=== PATIENT | male | born 1945 | race Caucasian/White ===

== ENCOUNTER 2018-04-26 05:20 | Inpatient (IN) ==
[2018-04-26] MEDS ORDERED: Nitroglycerin Drip Premix 50 MG/250 ML BOTTLE IV.CONT PRN (05:48)
[2018-04-26 05:58] LABS: ABG Base Excess 0.1 mmol/L (-2-2); ABG PCO2 42 mmHg (38-42); ABG PO2 126 mmHg (61-120)
[2018-04-26 06:04] LABS: Baso # (Auto) 0.1 th/mm3 (0.0-0.2); Baso % (Auto) 0.7 % (0.0-2.0); Eos # (Auto) 0.6 th/mm3 (0.0-0.4); Eos % (Auto) 4.3 % (0.0-4.0); Hematocrit 45.2 % (39.0-51.0); Hemoglobin 15.2 gm/dL (13.0-17.0); Lymph # (Auto) 5.9 th/mm3 (1.0-4.8); Lymph % (Auto) 39.3 % (9.0-44.0); Mean Corpuscular HGB Conc 33.7 % (32.0-36.0); Mean Corpuscular Hemoglobin 28.1 pg (27.0-34.0); Mean Corpuscular Volume 83.2 fL (80.0-100.0); Mean Platelet Volume 10.7 fL (7.0-11.0); Mono # (Auto) 1.1 th/mm3 (0.0-0.9); Mono % (Auto) 7.1 % (0.0-8.0); Neut # (Auto) 7.3 th/mm3 (1.8-7.7); Neut % (Auto) 48.6 % (16.0-70.0); Platelet Count 264 th/mm3 (150-450); Red Blood Count 5.43 mil/mm3 (4.50-5.90); Red Cell Distribution Width 14.3 % (11.6-17.2); White Blood Count 15.1 th/mm3 (4.0-11.0)
[2018-04-26 06:16] LABS: Alanine Aminotransferase 29 U/L (12-78); Albumin 3.6 g/dL (3.4-5.0); Anion Gap 8 meq/L (5-15); Aspartate Aminotransferase 21 U/L (15-37); Blood Urea Nitrogen 33 mg/dL (7-18); Calcium 8.9 mg/dL (8.5-10.1); Carbon Dioxide 27.7 meq/L (21.0-32.0); Chloride 105 meq/L (98-107); Glomerular Filtration Rate 27 mL/min (>89); Glucose,Random 168 mg/dL (74-106); Potassium 3.8 meq/L (3.5-5.1); Sodium 141 meq/L (136-145)
[2018-04-26 06:20] LABS: Alkaline Phosphatase 82 U/L (45-117); Total Protein 7.5 g/dL (6.4-8.2); Troponin I 0.06 ng/mL (0.02-0.05)
--- NOTE | 2018-04-26 06:31 | XR ---
EXAM DATE: 04/26/2018 6:26 AM EST AGE/SEX: 72 years / Male INDICATIONS: Shortness of breath. CLINICAL DATA: This is the patient's initial encounter. Patient reports that signs and symptoms have been present for 1 day and indicates a pain score of 0/10. MEDICAL/SURGICAL HISTORY: Carcinoma, prostatic. Hypertension. Tonsillectomy. COMPARISON: [facility], CHEST SINGLE AP, 06/15/2015. . FINDINGS: The heart size is upper limits of normal. There is increased density at the bases. The mid and upper lungs are clear. CONCLUSION: Bibasilar areas of consolidation or atelectasis. Electronically signed by: Sukhdeep De León MD Board Certified Radiologist 04/26/2018 6:29 AM EST
[2018-04-26 07:02] LABS: Eosinophils 3 % (0-4); Monocytes 6 % (0-8)
[2018-04-26 07:03] LABS: Lymphocytes 44 % (9-44); Platelet Estimate Normal (Normal); Platelet Morphology Normal (Normal)
[2018-04-26 07:04] LABS: RBC Morphology Normal (Normal)
--- NOTE | 2018-04-26 07:24 | ED ---
HPI General Chief Complaint: Shortness of Breath/Dyspnea Stated Complaint: resp Time Seen by Provider: 04/26/18 05:48 History of Present Illness pt has history of Bladder CA and was getting IV CT study yesterday , then late in night after study awoke to go to bathroom and felt he could not breath . pt arrives via EMS diaphoretic pulling with subcostal muscles increased RR , denies CHF no COPD history No CP , pt given Nebs en route and is in resp distress on arrival . HPI ROS limited due to resp distress and then rapidly on BiPAP Related Data Home Medications Medication Instructions Recorded Confirmed amlodipine 5 mg PO DAILY 04/26/18 04/26/18 lisinopril 40 mg PO DAILY 04/26/18 04/26/18 Allergies Allergy/AdvReac Type Severity Reaction Status Date / Time ciprofloxacin Allergy Severe Hives Verified 04/26/18 05:31 cephalexin Allergy Intermediate hives Verified 04/26/18 05:31 nitrofurantoin Allergy Intermediate hives Verified 04/26/18 05:31 penicillamine Allergy Hives Verified 04/26/18 05:31 Review of Systems ROS: all other systems reviewed are negative [facility] Medical History Medical History Bladder cancer (Acute) Diverticulitis (Acute) HTN (hypertension) (Acute) Prostate cancer (Acute) Surgical History Surgical History No history of previous surgery (Acute) Social History Social History Substance History: No History of Abuse Second Hand Smoke Exposure: No Smoking Status: Former smoker How Often Do You Have a Drink Containing Alcohol: Never Recent Travel in [facility] within the Last 8 Weeks: No Recent Out of Country Travel within the Last 8 Weeks: No Immunization History Tetanus Immunization: Unsure Exam Narrative Exam Narrative: GENERAL: pt is in resp distress SKIN: Warm and dry. HEAD: Atraumatic. Normocephalic. EYES: Pupils equal and round. No scleral icterus. No injection or drainage. ENT: No nasal bleeding or discharge. Mucous membranes pink and moist. NECK: Trachea midline. No JVD. CARDIOVASCULAR: Regular rate and rhythm. RESPIRATORY: +accessory muscle use. diffuse wheeze of cardiac asthma CHF like diffuse wheeze bilaterally. GASTROINTESTINAL: Abdomen soft, non-tender, nondistended. Hepatic and splenic margins not palpable. MUSCULOSKELETAL: Extremities without clubbing, cyanosis, or edema. No obvious deformities. NEUROLOGICAL: Awake and alert. No obvious cranial nerve deficits. Motor grossly within normal limits. Five out of 5 muscle strength in the arms and legs. Normal speech. PSYCHIATRIC: Appropriate mood and affect; insight and judgment normal. Course Initial Documented Vital Signs Temperature 96.5 F L 04/26/18 05:34 Pulse Rate 115 H 04/26/18 05:34 Respiratory Rate 23 04/26/18 05:34 Blood Pressure 215/123 H 04/26/18 05:34 Pulse Oximetry 98 04/26/18 05:34 Last Documented Vital Signs Temperature 96.5 F L 04/26/18 05:34 Pulse Rate 99 H 04/26/18 06:41 Respiratory Rate 16 04/26/18 06:41 Blood Pressure 139/67 04/26/18 06:41 Pulse Oximetry 98 04/26/18 07:31 Medical Decision Making Lab Data Result diagrams: 04/26/18 05:55 04/26/18 05:55 Lab Results 04/26/18 04/26/18 04/26/18 Range/Units 05:44 05:55 05:55 WBC 15.1 H (4.0-11.0) th/mm3 RBC 5.43 (4.50-5.90) mil/mm3 Hgb 15.2 (13.0-17.0) gm/dL Hct 45.2 (39.0-51.0) % MCV 83.2 (80.0-100.0) fL MCH 28.1 (27.0-34.0) pg MCHC 33.7 (32.0-36.0) % RDW 14.3 (11.6-17.2) % Plt Count 264 (150-450) th/mm3 MPV 10.7 (7.0-11.0) fL Prelim Diff (Auto) Slide review pending Neut % (Auto) 48.6 (16.0-70.0) % Lymph % (Auto) 39.3 (9.0-44.0) % [place] % (Auto) 7.1 (0.0-8.0) % Eos % (Auto) 4.3 H (0.0-4.0) % Baso % (Auto) 0.7 (0.0-2.0) % Neut # (Auto) 7.3 (1.8-7.7) th/mm3 Lymph # (Auto) 5.9 H (1.0-4.8) th/mm3 [place] # (Auto) 1.1 H (0.0-0.9) th/mm3 Eos # (Auto) 0.6 H (0.0-0.4) th/mm3 Baso # (Auto) 0.1 (0.0-0.2) th/mm3 WBC Differential Manual diff final Seg Neuts % (Manual) 47 (16-70) % Lymphocytes % (Manual) 44 (9-44) % Monocytes % (Manual) 6 (0-8) % Eosinophils % (Manual) 3 (0-4) % Abs Neuts (Manual) 7.1 (1.8-7.7) th/mm3 Differential Comment . Platelet Estimate Normal (Normal) Platelet Morphology Normal (Normal) RBC Morphology Normal (Normal) Puncture Site Left radial Patient Temperature 98.6 O2 Saturation 96 (90-100) % ABG pH 7.39 (7.380-7.420) ABG pCO2 42 (38-42) mmHg ABG pO2 126 H (61-120) mmHg ABG HCO3 25 (22-26) mmol/L ABG O2 Content 18.9 (12.0-20.0) Vol % ABG Base Excess 0.1 (-2-2) mmol/L ABG Methemoglobin 0.7 (0-2) % Derrick Test Present Hemoglobin 13.9 (12.0-16.0) G/DL Carboxyhemoglobin 1.7 (0-4) % O2 Delivery Device Nppv Vent Setting Ipap12/epap5 Inspired O2 40 % Critical Value No Sodium 141 (136-145) meq/L Potassium 3.8 (3.5-5.1) meq/L Chloride 105 (98-107) meq/L Carbon Dioxide 27.7 (21.0-32.0) meq/L Anion Gap 8 (5-15) meq/L BUN 33 H (7-18) mg/dL Creatinine 2.39 H (0.60-1.30) mg/dL Estimated GFR 27 L (>89) mL/min Random Glucose 168 H (74-106) mg/dL Calcium 8.9 (8.5-10.1) mg/dL Total Bilirubin 0.6 (0.2-1.0) mg/dL AST 21 (15-37) U/L ALT 29 (12-78) U/L Alkaline Phosphatase 82 (45-117) U/L Troponin I 0.06 H (0.02-0.05) ng/mL B-Natriuretic Peptide (0-100) pg/mL Total Protein 7.5 (6.4-8.2) g/dL Albumin 3.6 (3.4-5.0) g/dL 04/26/18 Range/Units 05:55 WBC (4.0-11.0) th/mm3 RBC (4.50-5.90) mil/mm3 Hgb (13.0-17.0) gm/dL Hct (39.0-51.0) % MCV (80.0-100.0) fL MCH (27.0-34.0) pg MCHC (32.0-36.0) % RDW (11.6-17.2) % Plt Count (150-450) th/mm3 MPV (7.0-11.0) fL Prelim Diff (Auto) Neut % (Auto) (16.0-70.0) % Lymph % (Auto) (9.0-44.0) % [place] % (Auto) (0.0-8.0) % Eos % (Auto) (0.0-4.0) % Baso % (Auto) (0.0-2.0) % Neut # (Auto) (1.8-7.7) th/mm3 Lymph # (Auto) (1.0-4.8) th/mm3 [place] # (Auto) (0.0-0.9) th/mm3 Eos # (Auto) (0.0-0.4) th/mm3 Baso # (Auto) (0.0-0.2) th/mm3 WBC Differential Seg Neuts % (Manual) (16-70) % Lymphocytes % (Manual) (9-44) % Monocytes % (Manual) (0-8) % Eosinophils % (Manual) (0-4) % Abs Neuts (Manual) (1.8-7.7) th/mm3 Differential Comment Platelet Estimate (Normal) Platelet Morphology (Normal) RBC Morphology (Normal) Puncture Site Patient Temperature O2 Saturation (90-100) % ABG pH (7.380-7.420) ABG pCO2 (38-42) mmHg ABG pO2 (61-120) mmHg ABG HCO3 (22-26) mmol/L ABG O2 Content (12.0-20.0) Vol % ABG Base Excess (-2-2) mmol/L ABG Methemoglobin (0-2) % Derrick Test Hemoglobin (12.0-16.0) G/DL Carboxyhemoglobin (0-4) % O2 Delivery Device Vent Setting Inspired O2 % Critical Value Sodium (136-145) meq/L Potassium (3.5-5.1) meq/L Chloride (98-107) meq/L Carbon Dioxide (21.0-32.0) meq/L Anion Gap (5-15) meq/L BUN (7-18) mg/dL Creatinine (0.60-1.30) mg/dL Estimated GFR (>89) mL/min Random Glucose (74-106) mg/dL Calcium (8.5-10.1) mg/dL Total Bilirubin (0.2-1.0) mg/dL AST (15-37) U/L ALT (12-78) U/L Alkaline Phosphatase (45-117) U/L Troponin I (0.02-0.05) ng/mL B-Natriuretic Peptide 701 H (0-100) pg/mL Total Protein (6.4-8.2) g/dL Albumin (3.4-5.0) g/dL Imaging Data Radiologist's impression: Chest X-Ray 04/26/18 05:49 CONCLUSION: Bibasilar areas of consolidation or atelectasis. Discharge Plan Physicians Team ED Provider: Antonio Jeong Primary Care Provider: Chace San Rxs /Orders / Referrals /Forms Prescriptions: No Action amlodipine 5 mg Tablet 5 mg PO DAILY RF: 0 lisinopril 40 mg Tablet 40 mg PO DAILY RF: 0 Status ED Status: Admitted Patient
[2018-04-26] MEDS ORDERED: Bisacodyl 10 MG Supp RECTAL PRN (07:31)
[2018-04-26] MEDS ORDERED: Acetaminophen 325 MG Tablet PO PRN (07:31)
[2018-04-26] MEDS: Heparin - SQ 10,000 UNITS/ML Vial SQ SCH ×2 (08:28→20:34)
[2018-04-26 09:02] LABS: Bacteria,Urine Many /hpf; Bilirubin,Urine Negative (Negative); Color,Urine Yellow (Yellw/Straw); Glucose,Urine (UA) Negative (Negative); Leukocyte Esterase,Urine Moderate (Negative); Mucus,Urine Few /lpf (Occasional); Nitrite,Urine Positive (Negative); Squamous Epithelial Cell,Urine 1 /hpf (0-5)
[2018-04-26 09:03] LABS: Clarity,Urine Hazy (Clear)
[2018-04-26 10:06] LABS: Troponin I 0.17 ng/mL (0.02-0.05)
[2018-04-26 14:50] LABS: Troponin I 0.13 ng/mL (0.02-0.05)
--- NOTE | 2018-04-26 15:41 | ECG ---
Date Performed: 04/26/2018 Time Performed: 05:31:46 PTAGE: 72 years EKG: SINUS TACHYCARDIA WITH FREQUENT VENTRICULAR PREMATURE COMPLEXES INCOMPLETE RIGHT BUNDLE BRA NCH BLOCK NONSPECIFIC T-WAVE ABNORMALITY Compared to previous tracing, tachycardia persists, with mor e significant ST changes and occasional ventricular ectopy. Clinical correlation is recommended ABNOR MAL RHYTHM ECG PREVIOUS TRACING : 06/15/2015 16.40 DOCTOR: Denver Palafox Interpretating Date/Time 04/26/2018 15:40:06
--- NOTE | 2018-04-26 16:05 | P.HPIM ---
History of Present Illness Primary Care Physician: Chace San MD Chief Complaint: dyspnea History of Present Illness: 9-year-old male with a past medical history of bladder cancer, prostate cancer, stage III kidney disease, hypertension who presented to the ER this morning with shortness of breath. He states that he awoke early this morning to urinate and after being up to the bathroom had acute onset of shortness of breath that worsened despite rest. He denies that he had any chest pain, denies syncope. He does admit that through the holidays and over the past week he has been having increased sodium intake, sliding that he has had [place], soy sauce, smoked him, pickles, etc. Yesterday he had an MRI with contrast of his prostate, states that he felt funny afterwards. In the last 2 months he has been to [facility] and had to take multiple breaks due to calf pain that was made worse by extended ambulation. ER workup showed elevated BNP level, urinalysis shows he has a urinary tract infection. Patient denies any symptoms of UTI, denies any recent fevers. He denies any upper respiratory symptoms, no cough, no phlegm changes. He denies any nausea vomiting or diarrhea. Inpatient Certification Inpatient Certification: I certify that the inpatient services were ordered in accordance with Medicare regulations governing the order. This includes certification that hospital inpatient services are reasonable and necessary and in the case of services not specified as inpatient-only under 42 CFR 419.22(n), that they are appropriately provided as inpatient services in accordance to with the 2-midnight benchmark under 43 CFR 412.3(e) Estimated Total Length of Stay (Days): 3 Plans for Post Hospital Care: Home Review of Systems Review of Systems: all other systems reviewed are negative [facility] Medical History Medical History Bladder cancer (Acute) Diverticulitis (Acute) HTN (hypertension) (Acute) Prostate cancer (Acute) Surgical History Surgical History No history of previous surgery (Acute) Family History Family History Other Hypertension Social History Social History Substance History: No History of Abuse Second Hand Smoke Exposure: No Smoking Status: Former smoker How Often Do You Have a Drink Containing Alcohol: Never Recent Travel in [facility] within the Last 8 Weeks: No Recent Out of Country Travel within the Last 8 Weeks: No Immunization History Tetanus Immunization: Unsure Medications and Allergies Allergies Allergy/AdvReac Type Severity Reaction Status Date / Time ciprofloxacin Allergy Severe Hives Verified 04/26/18 05:31 cephalexin Allergy Intermediate hives Verified 04/26/18 05:31 nitrofurantoin Allergy Intermediate hives Verified 04/26/18 05:31 penicillamine Allergy Hives Verified 04/26/18 05:31 Home Medications Medication Instructions Recorded Confirmed Type amlodipine 5 mg PO DAILY 04/26/18 04/26/18 History lisinopril 40 mg PO DAILY 04/26/18 04/26/18 History Active Medications: Active Medications Acetaminophen (Tylenol) 650 mg PO Q4H PRN PRN Reason: Temp > 100.4 Al Hydroxide/Mg Hydroxide (Milk Of Magnesia Liq) 30 ml PO Q12H PRN PRN Reason: Mild Constipation Bisacodyl (Dulcolax Supp) 10 mg RECTAL DAILY PRN PRN Reason: SEVERE CONSITIPATION Heparin Sodium (Porcine) (Heparin Inj) 5,000 units SQ Q12H [facility] Last Admin: 04/26/18 08:28 Dose: 5,000 units Nitroglycerin/Dextrose (Nitroglycerin Drip Premix) 50 mg in 250 mls @ 0 mls/hr IV.CONT TITRATE PRN; Protocol PRN Reason: Per Protocol Lactulose (Lactulose Liq) 30 ml PO DAILY PRN PRN Reason: SEVERE CONSITIPATION Ondansetron HCl (Zofran Inj) 4 mg IV.PUSH Q6H PRN PRN Reason: NAUSEA OR VOMITING Sennosides (Senokot) 17.2 mg PO Q12H PRN PRN Reason: Moderate Constipation Sodium Chloride (Ns Flush) 2 ml IV.FLUSH BID [facility] Last Admin: 04/26/18 09:21 Dose: 2 ml Sodium Chloride (Ns Flush) 2 ml IV.FLUSH PRN PRN PRN Reason: FLUSH AFTER USING IV ACCESS Trimethoprim/Sulfamethoxazole (Bactrim Ds) 1 tab PO Q12HR [facility] Physical Exam Vital signs: Last Vital Signs Temp 97.9 F 04/26/18 15:47 Pulse 95 H 04/26/18 15:47 Resp 18 04/26/18 15:47 BP 154/73 H 04/26/18 15:47 Pulse Ox 95 04/26/18 15:47 Intake & Output 04/24/18 04/25/18 04/26/18 04/27/18 06:59 06:59 06:59 06:59 Weight 90.718 kg Narrative: GENERAL: AAOx3, no acute distress, adequate nutrition SKIN: Warm and dry, no rashes. HEAD: Atraumatic. Normocephalic. EYES: Pupils equal, round, reactive to light. No scleral icterus. No injection or drainage. ENT: No nasal bleeding or discharge. Moist mucous membranes. Nonerythematous oropharynx. NECK: Trachea midline. No JVD. Thyroid size within normal limits. CARDIOVASCULAR: Regular rate and rhythm. No murmur, no gallops, no rubs. RESPIRATORY: Scattered rales bilaterally. Diminished bases with fine crackles bilaterally. No accessory muscle use. GASTROINTESTINAL: Abdomen soft, non-tender, nondistended, normal active bowel sounds. Hepatic and splenic margins not palpable. MUSCULOSKELETAL: Extremities without clubbing or cyanosis. No obvious deformities. Trace edema NEUROLOGICAL: Awake and alert. No obvious cranial nerve deficits. Motor grossly within normal limits. No focal deficits. Five out of 5 muscle strength in the arms and legs. Normal speech. PSYCHIATRIC: Appropriate mood and affect; insight and judgment normal. Results Labs CBC & Chem 7: 04/26/18 05:55 04/26/18 05:55 Imaging Impressions Chest X-Ray 04/26/18 05:49 CONCLUSION: Bibasilar areas of consolidation or atelectasis. Caprini VTE Risk Assessment Caprini VTE Risk Assessment: Moderate/High Risk (score >= 2) Caprini Risk Assessment Model: Point Value = 1 Point Value = 2 Point Value = 3 Point Value = 5 Age 41-60 Minor surgery BMI > 25 kg/m2 Swollen legs Varicose veins or History of unexplained or recurrent spontaneous Oral contraceptives or hormone replacement Sepsis (< 1 month) Serious lung disease, including pneumonia (< 1 month) Abnormal pulmonary function Acute myocardial infarction Congestive heart failure (< 1 month) History of inflammatory bowel disease Medical patient at bed rest Age 61-74 Arthroscopic surgery Major open surgery (> 45 min) Laparoscopic surgery (> 45 min) Malignancy Confined to bed (> 72 hours) Immobilizing plaster cast Central venous access Age >= 75 History of VTE Family history of VTE Factor V Leiden Prothrombin [id number] Lupus anticoagulant Anticardiolipin antibodies Elevated serum homocysteine Heparin-induced thrombocytopenia Other congenital or acquired thrombophilia Stroke (< 1 month) Elective arthroplasty Hip, pelvis, or leg fracture Acute spinal cord injury (< 1 month) Prophylaxis Regimen: Total Risk Factor Score Risk Level Prophylaxis Regimen 0-1 Low Early ambulation 2 Moderate Order ONE of the following: *Sequential Compression Device (SCD) *Heparin 5000 units SQ BID 3-4 Higher Order ONE of the following medications: *Heparin 5000 units SQ TID *Enoxaparin/Lovenox 40 mg SQ daily (WT < 150 kg, CrCl > 30 mL/min) *Enoxaparin/Lovenox 30 mg SQ daily (WT < 150 kg, CrCl > 10-29 mL/min) *Enoxaparin/Lovenox 30 mg SQ BID (WT < 150 kg, CrCl > 30 mL/min) AND/OR *Sequential Compression Device (SCD) 5 or more Highest Order ONE of the following medications: *Heparin 5000 units SQ TID (Preferred with Epidurals) *Enoxaparin/Lovenox 40 mg SQ daily (WT < 150 kg, CrCl > 30 mL/min) *Enoxaparin/Lovenox 30 mg SQ daily (WT < 150 kg, CrCl > 10-29 mL/min) *Enoxaparin/Lovenox 30 mg SQ BID (WT < 150 kg, CrCl > 30 mL/min) AND *Sequential Compression Device (SCD) Assessment and Plan Plan 72-year-old male with history of bladder cancer, prostate cancer who presented to the ER with shortness of breath, elevated troponin, elevated BNP, urinary tract infection. Respiratory distress Secondary to fluid overload, BNP was elevated indicating possible CHF Echocardiogram is pending Patient responded well to initial dose of Lasix, will re-dose now Patient is to remain on CIC in case he needs BiPAP again Currently breathing comfortably Elevated troponins Likely secondary to shortness of breath from fluid overload, possibly from renal impairment Consider, however, that his diet and overall health is a risk for coronary artery disease Cardiology is consulted to assist with further workup Urinary tract infection Patient has a history of prostate cancer and bladder cancer He has had semi-frequent urinary tract infections before He is allergic to Cipro, cephalosporins, penicillin We will begin treatment with Bactrim DS Hypertension Continue home dose of amlodipine and lisinopril DVT Prophylaxis Heparin
--- NOTE | 2018-04-26 16:59 | ECHRPT ---
Indication: Heart Failure CONCLUSIONS The left ventricular systolic function is moderately reduced with an estimated ejection fraction in the range of 40-45%. There is global left ventricular dysfunction. Doppler parameters are consistent with impaired left ventricular relaxtion (grade 1 diastolic dysfun ction). Trace mitral valve regurgitation. There is trace tricuspid valve regurgitation. There is a moderate pericardial effusion present with coagulum. No hemodynamically significant echocardiographic features were observed (no pre-tamponade physiology). BP: / HR: Rhythm: MEASUREMENTS (Male / Female) Normal Values Technical Quality:Fair 2D ECHO LV Diastolic Diameter PLAX 5.1 cm 4.2 - 5.9 / 3.9 - 5.3 cm LV Systolic Diameter PLAX 4.1 cm IVS Diastolic Thickness 0.9 cm 0.6 - 1.0 / 0.6 - 0.9 cm LVPW Diastolic Thickness 1.1 cm 0.6 - 1.0 / 0.6 - 0.9 cm LV Relative Wall Thickness 0.4 RV Internal Dim ED PLAX 2.2 cm LVOT Diameter 2.3 cm Aortic Root Diameter 3.0 cm LA Systolic Diameter LX 2.8 cm 3.0 - 4.0 / 2.7 - 3.8 cm DOPPLER AV Peak Velocity 112.0 cm/s AV Peak Gradient 5.0 mmHg LVOT Peak Velocity 80.0 cm/s LVOT Peak Gradient 2.6 mmHg AV Area Cont Eq pk 3.0 cm Mitral E Point Velocity 74.5 cm/s Mitral A Point Velocity 104.0 cm/s Mitral E to A Ratio 0.7 LV E' Lateral Velocity 7.7 cm/s Mitral E to LV E' Lateral Ratio 9.7 LV E' Septal Velocity 5.7 cm/s Mitral E to LV E' Septal Ratio 13.2 TR Peak Velocity 200.0 cm/s TR Peak Gradient 16.0 mmHg Right Atrial Pressure 10.0 mmHg Pulmonary Artery Systolic Pressu 26.0 mmHg Right Ventricular Systolic Press 26.0 mmHg PV Peak Velocity 80.8 cm/s PV Peak Gradient 2.6 mmHg FINDINGS LEFT VENTRICLE Normal left ventricular size. Wall thickness is normal. The left ventricular systolic function is moderately reduced with an estimated ejection fraction in the range of 40-45%. There is global left ventricular dysfunction. Doppler parameters are consistent with impaired left ventricular relaxtion (grade 1 diastolic dysfun ction). RIGHT VENTRICLE Normal right ventricular size and systolic function. LEFT ATRIUM The left atrial size is normal. RIGHT ATRIUM The right atrial size is normal. ATRIAL SEPTUM Normal atrial septal thickness without atrial level shunting by limited color doppler interrogation. AORTA The aortic root and proximal ascending aorta are normal in size on limited imaging. MITRAL VALVE Structurally normal mitral valve. Trace mitral valve regurgitation. No mitral valve stenosis. AORTIC VALVE Trileaflet aortic valve. No aortic valve stenosis or regurgitation. TRICUSPID VALVE Structurally normal tricuspid valve. There is trace tricuspid valve regurgitation. The estimated pulmonary arterial pressure is 26 mmHg. PULMONARY VALVE The pulmonary valve is not well visualized. VESSELS The inferior vena cava is dilated. PERICARDIUM There is a moderate pericardial effusion present with coagulum. No hemodynamically significant echocardiographic features were observed (no pre-tamponade physiology). David Fair DO (Electronically Signed) Final Date:26 April 2018 16:58
--- NOTE | 2018-04-26 22:56 | MB ---
cc: David Fair DO DATE: 04/26/2018 REASON FOR CONSULTATION: Shortness of breath, elevated troponin. HISTORY OF PRESENT ILLNESS: Elías Aldridge is a pleasant 72-year-old male who presented to [facility] Emergency Room due to shortness of breath. He states that he had an MRI with contrast for his prostate and afterwards felt funny, including a warm feeling and somewhat dizzy. He then went home and went to bed. He got up in the middle of the night like he normally does to use the restroom. After walking back from the restroom, he sat down in his recliner and noticed he was significantly short of breath. He continued having trouble breathing. Denying any chest pain or palpitations and so as his breathing was not getting better, he called his and she brought him to the emergency room. The patient admits that over the past 2-3 weeks his diet has been horrible, eating smoked ham every day, along with [place] food with extra soy sauce. Since here, he has been given a dose of diuretic and feels better. PAST MEDICAL HISTORY: 1. Bladder cancer. 2. Diverticulitis. 3. Hypertension. 4. Prostate cancer. PAST SURGICAL HISTORY: Tonsillectomy. ALLERGIES: 1. CIPROFLOXACIN. 2. CEFOXITIN. 3. NITROFURANTOIN. 4. PENICILLAMINE. MEDICATIONS: 1. Norvasc 5 mg daily. 2. Lisinopril 40 mg daily. FAMILY HISTORY: Denies sudden cardiac within the family. SOCIAL HISTORY: The patient is a former smoker. Denies alcohol or drug abuse. REVIEW OF SYSTEMS: Fourteen systems were reviewed, including osteopathic. Pertinent positives and negatives above, otherwise negative. PHYSICAL EXAMINATION: VITAL SIGNS: Temperature 97.9, heart rate 95, blood pressure 154/73, respirations 18, pulse oximetry 95% on room air. GENERAL: The patient appears well, in no acute distress, alert, awake and oriented x 3. HEENT: Extraocular muscles intact. Mucous membranes moist. NECK: Supple. No JVD at 45 degrees. No carotid bruits heard bilaterally. Carotid upstroke is brisk in nature. HEART: Regular rate and rhythm. Positive first and second heart sounds with no noted murmurs, gallops or rubs. LUNGS: Scattered rales bilaterally with diminished breath sounds at the bases. No accessory muscle use noted. ABDOMEN: Soft, nontender, nondistended. No organomegaly noted. EXTREMITIES: Show no clubbing, cyanosis or edema. Femoral and distal pulses are intact bilaterally. NEUROLOGIC: No focal deficits. SKIN: Warm, dry and intact. OSTEOPATHIC: Mild lordosis. No kyphoscoliosis or paraspinal tender points. LABORATORY DATA: Hemoglobin 15.2, hematocrit 45.2, platelets 264. Potassium 3.8, BUN 33, creatinine 2.39. Troponin 0.17. Electrocardiogram (04/26/2018 at 1408): Sinus rhythm, incomplete right bundle branch block, nonspecific ST-T wave changes. IMPRESSION: 1. Acute heart failure secondary to salt indiscretion. 2. Hypertensive urgency with a blood pressure of 215/123 on arrival. 3. History of bladder cancer and prostate cancer. 4. Minimally elevated troponin secondary to fluid overload state, renal impairment and hypertensive urgency. RECOMMENDATIONS: 1. Mr. Aldridge presented with significant shortness of breath, most likely due to a fluid overload state due to his dietary indiscretion with salt recently. 2. He was also found to be exceptionally hypertensive, most likely due to his salt indiscretion. Since that time, his blood pressure has been somewhat better. We will continue him on his Norvasc. 3. His creatinine is elevated from the last lab work we have, but this is 3 years ago. We will continue to follow this and if worsening, will need to stop his lisinopril. 4. We will continue to diurese him as possible. 5. Elevated troponin is most likely secondary to his acute congestive heart failure as well as his hypertensive urgency. 6. Echocardiogram is being done at the bedside, intravenous. His ejection fraction appears to be 40% to 45% and he has a moderate pericardial effusion with what appears to be coagulum, and no hemodynamic compromise of tamponade. 7. We will continue to diurese him and need to repeat the echo probably in 48 hours. 8. We should obtain the MRI from [facility] for complete picture. 9. We will work him up for other causes of pericardial effusion. 10. Due to his overall history, I believe he should undergo a stress test at some point, and we will consider inpatient versus outpatient stress testing, depending on his hospital course. 11. Further recommendations will be made based on the hospital course. Thank you for allowing me to see Elías Aldridge. If there are any questions, please do not hesitate to call. DO DANIS Burdick/severo , 10:00 PM , 10:13 PM
[2018-04-27 05:55] LABS: Hematocrit 38.1 % (39.0-51.0); Hemoglobin 12.5 gm/dL (13.0-17.0); Mean Corpuscular HGB Conc 32.7 % (32.0-36.0); Mean Corpuscular Hemoglobin 27.3 pg (27.0-34.0); Mean Corpuscular Volume 83.5 fL (80.0-100.0); Mean Platelet Volume 10.7 fL (7.0-11.0); Platelet Count 184 th/mm3 (150-450); Red Blood Count 4.56 mil/mm3 (4.50-5.90); Red Cell Distribution Width 13.9 % (11.6-17.2); White Blood Count 10.5 th/mm3 (4.0-11.0)
[2018-04-27 06:23] LABS: Calcium 8.7 mg/dL (8.5-10.1); Potassium 3.5 meq/L (3.5-5.1)
[2018-04-27 06:33] LABS: Thyroid Stimulating Hormone 0.87 uIU/mL (0.358-3.740)
[2018-04-27] MEDS: Lisinopril 20 MG Tablet PO SCH (08:53)
[2018-04-27] MEDS: Heparin - SQ 10,000 UNITS/ML Vial SQ SCH ×2 (08:54→20:01)
[2018-04-27] MEDS ORDERED: amLODIPine 5 MG Tablet PO SCH (09:00)
--- NOTE | 2018-04-27 10:09 | ECG ---
Date Performed: 04/26/2018 Time Performed: 14:08:02 PTAGE: 72 years EKG: Sinus rhythm Incomplete RBBB Possible right ventricular hypertrophy Anterolateral T wave changes may be due to my ocardial ischemia Abnormal ECG PREVIOUS TRACING : 04/26/2018 05.31 DOCTOR: Nikolay Posada Interpretating Date/Time 04/27/2018 10:08:12
[2018-04-27] MEDS ORDERED: Tuberculin PPD 5 UNITS/0.1 ML Syringe I-DERMAL ONE (15:00)
[2018-04-27] MEDS ORDERED: amLODIPine 5 MG Tablet PO ONE (15:05)
--- NOTE | 2018-04-27 15:11 | P.PNCA ---
Subjective Interval history: No events overnight Feels better, SOB decreased Continues to diurese Medications and Allergies Active Medications: Active Medications Acetaminophen (Tylenol) 650 mg PO Q4H PRN PRN Reason: Temp > 100.4 Last Admin: 04/26/18 20:36 Dose: 650 mg Al Hydroxide/Mg Hydroxide (Milk Of Magnesia Liq) 30 ml PO Q12H PRN PRN Reason: Mild Constipation Amlodipine Besylate (Norvasc) 5 mg PO DAILY [facility] Last Admin: 04/27/18 08:53 Dose: 5 mg Aspirin (Aspirin Chew) 81 mg PO DAILY [facility] Last Admin: 04/27/18 08:53 Dose: 81 mg Bisacodyl (Dulcolax Supp) 10 mg RECTAL DAILY PRN PRN Reason: SEVERE CONSITIPATION Doxycycline Hyclate (Vibramycin) 100 mg PO Q12HR [facility] Last Admin: 04/27/18 08:53 Dose: 100 mg Heparin Sodium (Porcine) (Heparin Inj) 5,000 units SQ Q12H [facility] Last Admin: 04/27/18 08:54 Dose: 5,000 units Nitroglycerin/Dextrose (Nitroglycerin Drip Premix) 50 mg in 250 mls @ 0 mls/hr IV.CONT TITRATE PRN; Protocol PRN Reason: Per Protocol Lactulose (Lactulose Liq) 30 ml PO DAILY PRN PRN Reason: SEVERE CONSITIPATION Lisinopril (Prinivil) 40 mg PO DAILY [facility] Last Admin: 04/27/18 08:53 Dose: 40 mg Ondansetron HCl (Zofran Inj) 4 mg IV.PUSH Q6H PRN PRN Reason: NAUSEA OR VOMITING Sennosides (Senokot) 17.2 mg PO Q12H PRN PRN Reason: Moderate Constipation Skin Test Antigens (Skin Test Result) 1 each OTHER Q24H [facility] Stop: 04/30/18 14:59 Sodium Chloride (Ns Flush) 2 ml IV.FLUSH BID [facility] Last Admin: 04/27/18 08:54 Dose: 2 ml Sodium Chloride (Ns Flush) 2 ml IV.FLUSH PRN PRN PRN Reason: FLUSH AFTER USING IV ACCESS Allergies Allergy/AdvReac Type Severity Reaction Status Date / Time ciprofloxacin Allergy Severe Hives Verified 04/26/18 05:31 cephalexin Allergy Intermediate hives Verified 04/26/18 05:31 nitrofurantoin Allergy Intermediate hives Verified 04/26/18 05:31 penicillamine Allergy Hives Verified 04/26/18 05:31 Home Medications Medication Instructions Recorded Confirmed Type amlodipine 5 mg PO DAILY 04/26/18 04/26/18 History lisinopril 40 mg PO DAILY 04/26/18 04/26/18 History Physical Exam Vital signs: Vital Signs 04/26/18 15:45 04/26/18 15:47 04/26/18 17:00 Temperature 97.9 F Pulse Rate 85 95 H 82 Respiratory Rate 18 Blood Pressure 154/73 H Pulse Oximetry 95 04/26/18 18:00 04/26/18 19:00 04/26/18 20:00 Temperature 98.7 F Pulse Rate 83 92 H 103 H Respiratory Rate 17 Blood Pressure 168/84 H Pulse Oximetry 95 04/26/18 21:00 04/26/18 22:00 04/26/18 22:35 Temperature Pulse Rate 92 H 95 H Respiratory Rate 17 Blood Pressure Pulse Oximetry 04/26/18 23:00 04/27/18 00:00 04/27/18 01:00 Temperature 98.3 F Pulse Rate 95 H 110 H 92 H Respiratory Rate 17 Blood Pressure 158/83 H Pulse Oximetry 95 04/27/18 02:00 04/27/18 03:00 04/27/18 04:00 Temperature 97.9 F Pulse Rate 87 92 H 101 H Respiratory Rate 18 Blood Pressure 169/94 H Pulse Oximetry 97 04/27/18 05:00 04/27/18 05:19 04/27/18 07:00 Temperature Pulse Rate 101 H 86 84 Respiratory Rate Blood Pressure Pulse Oximetry 04/27/18 08:00 04/27/18 08:20 04/27/18 09:00 Temperature 97.3 F L Pulse Rate 102 H 92 H 98 H Respiratory Rate 20 Blood Pressure 155/87 H Pulse Oximetry 95 95 04/27/18 10:00 04/27/18 12:00 Temperature 98.6 F Pulse Rate 104 H 92 H Respiratory Rate 20 Blood Pressure 156/74 H Pulse Oximetry 95 Intake & Output 04/26/18 04/27/18 04/27/18 18:59 06:59 18:59 Intake Total 840 / 840 1440 / 1440 Output Total 800 / 800 1000 / 1000 Balance 40 / 40 440 / 440 Intake: Oral 840 / 840 1440 / 1440 Output: Urine 800 / 800 1000 / 1000 Other: Date of Last Bowel Movement 04/26/18 Narrative: GENERAL: AAOx3, no acute distress, adequate nutrition SKIN: Warm and dry, no rashes. HEAD: Atraumatic. Normocephalic. EYES: Pupils equal, round, reactive to light. No scleral icterus. No injection or drainage. ENT: No nasal bleeding or discharge. Moist mucous membranes. Nonerythematous oropharynx. NECK: Trachea midline. No JVD. Thyroid size within normal limits. CARDIOVASCULAR: Regular rate and rhythm. No murmur, no gallops, no rubs. RESPIRATORY: Scattered rales bilaterally. Diminished bases with fine crackles bilaterally. No accessory muscle use. GASTROINTESTINAL: Abdomen soft, non-tender, nondistended, normal active bowel sounds. Hepatic and splenic margins not palpable. MUSCULOSKELETAL: Extremities without clubbing or cyanosis. No obvious deformities. Trace edema NEUROLOGICAL: Awake and alert. No obvious cranial nerve deficits. Motor grossly within normal limits. No focal deficits. Five out of 5 muscle strength in the arms and legs. Normal speech. PSYCHIATRIC: Appropriate mood and affect; insight and judgment normal. Results 04/27/18 04:41 04/27/18 04:41 Cardiac Enzymes 04/26/18 04/26/18 04/26/18 Range/Units 05:55 05:55 09:08 AST 21 (15-37) U/L Troponin I 0.06 H 0.17 H (0.02-0.05) ng/mL B-Natriuretic Peptide 701 H (0-100) pg/mL 04/26/18 04/27/18 Range/Units 14:15 04:41 AST (15-37) U/L Troponin I 0.13 H (0.02-0.05) ng/mL B-Natriuretic Peptide 433 H (0-100) pg/mL Coagulation 04/26/18 04/27/18 Range/Units 05:55 04:41 B-Natriuretic Peptide 701 H 433 H (0-100) pg/mL CBC 04/26/18 04/27/18 Range/Units 05:55 04:41 WBC 15.1 H 10.5 (4.0-11.0) th/mm3 RBC 5.43 4.56 (4.50-5.90) mil/mm3 Hgb 15.2 12.5 L D (13.0-17.0) gm/dL Hct 45.2 38.1 L (39.0-51.0) % Plt Count 264 184 D (150-450) th/mm3 Neut # (Auto) 7.3 (1.8-7.7) th/mm3 Lymph # (Auto) 5.9 H (1.0-4.8) th/mm3 [place] # (Auto) 1.1 H (0.0-0.9) th/mm3 Eos # (Auto) 0.6 H (0.0-0.4) th/mm3 Baso # (Auto) 0.1 (0.0-0.2) th/mm3 Comprehensive Metabolic Panel 04/26/18 04/27/18 Range/Units 05:55 04:41 Sodium 141 141 (136-145) meq/L Potassium 3.8 3.5 (3.5-5.1) meq/L Chloride 105 106 (98-107) meq/L Carbon Dioxide 27.7 27.0 (21.0-32.0) meq/L BUN 33 H 36 H (7-18) mg/dL Creatinine 2.39 H 2.13 H (0.60-1.30) mg/dL Calcium 8.9 8.7 (8.5-10.1) mg/dL AST 21 (15-37) U/L ALT 29 (12-78) U/L Alkaline Phosphatase 82 (45-117) U/L Total Protein 7.5 (6.4-8.2) g/dL Albumin 3.6 (3.4-5.0) g/dL Intake and Output 04/27/18 04/27/18 04/27/18 06:59 14:59 22:59 Intake Total 1440 / 1440 Output Total 1000 / 1000 Balance 440 / 440 Intake: Oral 1440 / 1440 Output: Urine 1000 / 1000 - Imaging and Cardiology Imaging: Impressions Chest X-Ray 04/26/18 05:49 CONCLUSION: Bibasilar areas of consolidation or atelectasis. Assessment and Plan - Assessment (1) Acute CHF (congestive heart failure) Code(s): I50.9 - Heart failure, unspecified Status: Acute (2) Elevated troponin Code(s): R74.8 - Abnormal levels of other serum enzymes Status: Acute - Plan 1. Acute heart failure secondary to salt indiscretion. Con't diuresis Decrease salt intake 2. Hypertensive urgency with a blood pressure of 215/123 on arrival. Blood pressure control Will increase Norvasc to 10mg daily 3. History of bladder cancer and prostate cancer. 4. Minimally elevated troponin secondary to fluid overload state, renal impairment and hypertensive urgency. No sign of ACS Consider stress testing, most likely outpatient 5. Pericardial effusion with coagulum Mantoux (PPD) test placed Obtain imaging from [facility] With bladder and prostate cancer, the chances of the effusion being malignant would be very small (usually lung, breast CA) Repeat echo tomorrow to evaluate
--- NOTE | 2018-04-27 16:09 | P.PNIM ---
Subjective Interval history: This morning patient reported that he is feeling much better and would like to go home. He was evaluated by cardiology who wishes to repeat an echocardiogram tomorrow morning. He has been diuresed during his stay in the overall cause of his admission seems to be fluid overload secondary to increased salt intake. Physical Exam Vital signs: Last Vital Signs Temp 98.4 F 04/27/18 15:23 Pulse 92 H 04/27/18 15:55 Resp 18 04/27/18 15:23 BP 146/78 H 04/27/18 15:23 Pulse Ox 95 04/27/18 15:23 Intake & Output 04/25/18 04/26/18 04/27/18 04/28/18 06:59 06:59 06:59 06:59 Intake Total 2280 / 2280 Output Total 1800 / 1800 Balance 480 / 480 Weight 90.718 kg Narrative: GENERAL: AAOx3, no acute distress, adequate nutrition SKIN: Warm and dry, no rashes. HEAD: Atraumatic. Normocephalic. EYES: Pupils equal, round, reactive to light. No scleral icterus. No injection or drainage. ENT: No nasal bleeding or discharge. Moist mucous membranes. Nonerythematous oropharynx. NECK: Trachea midline. No JVD. Thyroid size within normal limits. CARDIOVASCULAR: Regular rate and rhythm. No murmur, no gallops, no rubs. RESPIRATORY: Scattered rales bilaterally. Diminished bases with fine crackles bilaterally. No accessory muscle use. GASTROINTESTINAL: Abdomen soft, non-tender, nondistended, normal active bowel sounds. Hepatic and splenic margins not palpable. MUSCULOSKELETAL: Extremities without clubbing or cyanosis. No obvious deformities. Trace edema NEUROLOGICAL: Awake and alert. No obvious cranial nerve deficits. Motor grossly within normal limits. No focal deficits. Five out of 5 muscle strength in the arms and legs. Normal speech. PSYCHIATRIC: Appropriate mood and affect; insight and judgment normal. Results Labs CBC & Chem 7: 04/27/18 04:41 04/27/18 04:41 Labs: Microbiology 04/26/18 08:20 Clean Catch Urine Urine Culture - Preliminary gram negative rods Assessment and Plan (1) Acute CHF (congestive heart failure): Code(s): I50.9 - Heart failure, unspecified Status: Acute (2) Elevated troponin: Code(s): R74.8 - Abnormal levels of other serum enzymes Status: Acute Plan 72-year-old male with history of bladder cancer, prostate cancer who presented to the ER with shortness of breath, elevated troponin, elevated BNP, urinary tract infection. Respiratory distress Secondary to fluid overload, BNP was elevated indicating possible CHF Initial echocardiogram shows ejection fraction of 40-45%, repeat 2D echocardiogram is ordered for tomorrow morning Continue Lasix for diuresis Breathing is stable, at baseline Elevated troponins Likely secondary to shortness of breath from fluid overload, possibly from renal impairment, excess salt intake Consider, however, that his diet and overall health is a risk for coronary artery disease Plan for stress testing, likely as outpatient Appreciate cardiology consult Urinary tract infection Patient has a history of prostate cancer and bladder cancer He has had semi-frequent urinary tract infections before He is allergic to Cipro, cephalosporins, penicillin We will begin treatment with Bactrim DS Continue Bactrim DS for 5-7 days following discharge Hypertension Continue home dose of amlodipine and lisinopril DVT Prophylaxis Heparin Discharge planning If echocardiogram is improved and cleared by cardiology patient may likely go home tomorrow _ (1) Acute CHF (congestive heart failure) Qualifiers: Heart failure type:
[2018-04-28] MEDS: Heparin - SQ 10,000 UNITS/ML Vial SQ SCH ×2 (09:23→21:29)
[2018-04-28] MEDS: Lisinopril 20 MG Tablet PO SCH (09:23)
[2018-04-28] MEDS: amLODIPine 10 MG Tablet PO SCH (09:24)
--- NOTE | 2018-04-28 10:18 | ECHRPT ---
Indication: ?EF, ?PE CONCLUSIONS Normal left ventricular size. Wall thickness is normal. The left ventricular systolic function is severely reduced with an estimated ejection fraction less than 20%. No tricuspid regurgitation. There is a small to moderate anterior pericardial effusion present. There is some comprimise of the right atrium with diastolic collapse. No significant right ventricular collapse. The possibility of hemodynamic compromise cannot be excluded on the basis of the available images. Clinical correlation is recommended.. BP: / HR: Rhythm: Sinus MEASUREMENTS (Male / Female) Normal Values Technical Quality:Fair 2D ECHO LV Diastolic Diameter PLAX 5.5 cm 4.2 - 5.9 / 3.9 - 5.3 cm LV Systolic Diameter PLAX 5.1 cm IVS Diastolic Thickness 0.9 cm 0.6 - 1.0 / 0.6 - 0.9 cm LVPW Diastolic Thickness 0.9 cm 0.6 - 1.0 / 0.6 - 0.9 cm LV Relative Wall Thickness 0.3 RV Internal Dim ED PLAX 1.8 cm LA Systolic Diameter LX 2.8 cm 3.0 - 4.0 / 2.7 - 3.8 cm M-MODE AV Cusp Separation MM 1.8 cm DOPPLER AV Peak Velocity 101.0 cm/s AV Peak Gradient 4.1 mmHg AV Mean Gradient 2.0 mmHg AV Velocity Time Integral 16.6 cm LVOT Peak Velocity 74.4 cm/s LVOT Peak Gradient 2.2 mmHg LVOT Velocity Time Integral 11.5 cm Mitral E Point Velocity 69.6 cm/s Mitral A Point Velocity 97.7 cm/s Mitral E to A Ratio 0.7 LV E' Lateral Velocity 6.6 cm/s Mitral E to LV E' Lateral Ratio 10.5 LV E' Septal Velocity 3.8 cm/s Mitral E to LV E' Septal Ratio 18.3 FINDINGS LEFT VENTRICLE Normal left ventricular size. Wall thickness is normal. The left ventricular systolic function is severely reduced with an estimated ejection fraction less than 20%. RIGHT VENTRICLE Normal right ventricular size and systolic function. LEFT ATRIUM The left atrial size is normal. RIGHT ATRIUM The right atrial size is normal. ATRIAL SEPTUM The interatrial septum not well visualized. AORTA The aortic root and proximal ascending aorta are normal in size on limited imaging. MITRAL VALVE Structurally normal mitral valve. No mitral valve stenosis or regurgitation. AORTIC VALVE Trileaflet aortic valve. No aortic valve stenosis or regurgitation. TRICUSPID VALVE No tricuspid regurgitation. PULMONARY VALVE The pulmonary valve is not well visualized. VESSELS The inferior vena cava is normal in size. PERICARDIUM There is a small to moderate anterior pericardial effusion present. There is some comprimise of the right atrium with diastolic collapse. No significant right ventricular collapse. The possibility of hemodynamic compromise cannot be excluded on the basis of the available images. Clinical correlation is recommended.. Nikolay Posada MD, FACC (Electronically Signed) Final Date:28 April 2018 10:17
[2018-04-28 11:37] LABS: Hemoglobin 13.6 gm/dL (13.0-17.0); Mean Corpuscular HGB Conc 33.9 % (32.0-36.0); Mean Corpuscular Hemoglobin 27.9 pg (27.0-34.0); Mean Corpuscular Volume 82.4 fL (80.0-100.0); Mean Platelet Volume 10.7 fL (7.0-11.0); Platelet Count 218 th/mm3 (150-450); Red Blood Count 4.86 mil/mm3 (4.50-5.90); Red Cell Distribution Width 14.5 % (11.6-17.2); White Blood Count 9.8 th/mm3 (4.0-11.0)
[2018-04-28 12:01] LABS: Calcium 8.9 mg/dL (8.5-10.1); Carbon Dioxide 28.6 meq/L (21.0-32.0); Potassium 3.6 meq/L (3.5-5.1)
--- NOTE | 2018-04-28 13:22 | P.PNIM ---
Subjective Interval history: patient laying down in bed. No current complaints. Physical Exam Vital signs: Vital Signs 04/27/18 14:00 04/27/18 15:00 04/27/18 15:23 Temperature 98.4 F Pulse Rate 88 92 H 88 Respiratory Rate 18 Blood Pressure 146/78 H Pulse Oximetry 95 04/27/18 15:55 04/27/18 17:00 04/27/18 17:51 Temperature Pulse Rate 92 H 110 H 97 H Respiratory Rate Blood Pressure Pulse Oximetry 04/27/18 19:00 04/27/18 20:00 04/27/18 21:00 Temperature 97.8 F Pulse Rate 95 H 92 H 98 H Respiratory Rate 16 Blood Pressure 156/94 H Pulse Oximetry 96 04/27/18 22:00 04/27/18 23:00 04/28/18 00:00 Temperature 98.6 F Pulse Rate 94 H 90 102 H Respiratory Rate 16 Blood Pressure 163/82 H Pulse Oximetry 96 04/28/18 01:00 04/28/18 02:00 04/28/18 03:00 Temperature Pulse Rate 90 98 H 119 H Respiratory Rate Blood Pressure Pulse Oximetry 04/28/18 04:00 04/28/18 05:00 04/28/18 07:00 Temperature 98.1 F Pulse Rate 94 H 92 H 85 Respiratory Rate 16 Blood Pressure 148/69 H Pulse Oximetry 94 L 04/28/18 08:00 04/28/18 09:00 04/28/18 09:35 Temperature 98.2 F Pulse Rate 104 H 96 H Respiratory Rate Blood Pressure 147/86 H Pulse Oximetry 96 95 04/28/18 10:00 04/28/18 11:00 04/28/18 12:00 Temperature 98.0 F Pulse Rate 94 H 85 96 H Respiratory Rate 16 Blood Pressure 134/80 Pulse Oximetry 96 04/28/18 13:00 Temperature Pulse Rate 112 H Respiratory Rate Blood Pressure Pulse Oximetry Intake & Output 04/27/18 04/28/18 04/28/18 18:59 06:59 18:59 Intake Total 1440 / 1440 720 / 720 Output Total 2600 / 2600 2300 / 2300 Balance -1160 / -1160 -1580 / -1580 Weight 88.3 kg Intake: Oral 1440 / 1440 720 / 720 Output: Urine 2600 / 2600 2300 / 2300 Other: Date of Last Bowel Movement 04/27/18 04/27/18 Narrative: alert and oriented S1S2 cta b/l B/l lower ext edema resolved. No edema on my examination No neuro deficits. Results - Labs CBC & Chem 7: 04/28/18 11:16 04/28/18 11:16 Laboratory Results - last 24 hr 04/28/18 04/28/18 11:16 11:16 WBC 9.8 RBC 4.86 Hgb 13.6 Hct 40.0 MCV 82.4 MCH 27.9 MCHC 33.9 RDW 14.5 Plt Count 218 MPV 10.7 Sodium 139 Potassium 3.6 Chloride 103 Carbon Dioxide 28.6 Anion Gap 7 BUN 32 H Creatinine 2.15 H Estimated GFR 31 L Random Glucose 103 Calcium 8.9 Microbiology 04/26/18 08:20 Clean Catch Urine Urine Culture - Final Escherichia coli Assessment and Plan - Assessment (1) Acute CHF (congestive heart failure) Code(s): I50.9 - Heart failure, unspecified Status: Acute (2) Elevated troponin Code(s): R74.8 - Abnormal levels of other serum enzymes Status: Acute - Plan This patient is a 72 y/o M with a dx of bladder cancer, prostate cancer, Stage III CKD, HTN. Patient presented to the ED with complaints of Shortness of breath. Patient was subsequently admitted for a CHF exacerbation and was started on IV lasix for diuresis. 1. Acute Systolic CHF exacerbation. Patient is now on room air and has been diuresed well. 2 D echo now shows EF less than 20%, small pericardial effusion. PPD ordered by cardiology. Continue Aspirin, Coreg started, continue lisinopril. Will follow up with Cardiology for their recommendations regarding the patients severe Systolic heart failure. Once cleared by cardiology will plan his discharge. 2. Elevated troponins likely 2/2 #1 Elevated troponins from systolic chf exac most likely Cardiology following continue asa, bb 3. UTI E coli, sensitive to Bactrim. Continue po bactrim. 4. HTN Continue lisinopril, BB. will continue to monitor and adjust his meds as needed. 5. CKD stage III Cr at baseline. avoid nephrotoxic agents. Heparin for dvt prophylaxis.
[2018-04-28 15:06] LABS: Activated Partial Thrombo Time 32.2 sec (23.4-31.7); INR 1.3 Ratio; Prothrombin Time 12.9 sec (9.8-11.6)
--- NOTE | 2018-04-28 15:53 | P.RAD ---
Post CT Procedure Prog Note - Procedure Information Procedure Date: 04/28/18 Supervising Radiologist: Jose R Abbott MD Estimated blood loss (mL): 0 Anesthesia: Local - Plan of Activity Patient to Unit: Nursing Unit Patient condition: Good See PACS Report for procedural detail/treatment.
--- NOTE | 2018-04-28 16:18 | CT ---
EXAM DATE: 04/28/2018 4:14 PM EST AGE/SEX: 72 years / Male INDICATIONS: Pericardial effusion. CLINICAL DATA: This is the patient's initial encounter. Patient reports that signs and symptoms have been present for 1 day and indicates a pain score of 0/10. MEDICAL/SURGICAL HISTORY: Carcinoma, bladder. Hypertension. Renal disease. None. COMPARISON: No prior exams available for comparison. BIOPSY SITE: pericardial effusion MEDICATION(S): 2mg lorazepam (Ativan) IV DEVICE(S): 6 Fr Skater FLUID: Total volume of 170 of clear, yellow fluid was removed. Fluid was sent to lab for ordered studies.. . . PROCEDURE : CT guided drainage of pericardial effusion. The risks, benefits and alternatives to the procedure were explained and verbal and written consent w as obtained. Using automated exposure control and adjustment of the mA and/or kV according to patient size, radiation dose was kept as low as reasonably achievable to obtain optimal diagnostic quality i mages. The site was prepped in sterile fashion. Full sterile technique was used, including cap, ma sk, sterile gloves and gown and a large sterile sheet. Hand hygiene and 2% chlorhexidine and/or beta dine/alcohol prep was utilized per protocol for cutaneous antisepsis. The skin and subcutaneous tiss ues were infiltrated with local anesthetic solution. DICOM format image data is available electronic ally for review and comparison. Using CT guidance the prescribed site was localized. Drainage was performed using the prescribed cat heter. The patient tolerated the procedure well and there were no complications. The patient tolerated the procedure well and there were no complications. The patient was sent to post anesthesia recovery in s table condition. FINDINGS: There is a small pericardial effusion. No significant residual effusion following catheter placement. CONCLUSION: 1. Uncomplicated CT guided pericardial drainage catheter placement, as above. Electronically signed by: Jose R Abbott MD Board Certified Radiologist 04/28/2018 4:17 PM EST
[2018-04-28 17:57] LABS: Mesothelials Pericardial Fluid 22 %
[2018-04-28] MEDS ORDERED: Morphine Inj 4 MG/ML Vial IV.PUSH ONE (21:18)
[2018-04-28] MEDS ORDERED: Acetaminophen 325 MG Tablet PO PRN (21:18)
--- NOTE | 2018-04-28 23:26 | P.PNCA ---
Subjective Interval history: Feels well overall Repeat echo with concern for EF of 20%, questionable pre-tamponade on echo Medications and Allergies Active Medications: Active Medications Acetaminophen (Tylenol) 650 mg PO Q4H PRN PRN Reason: Temp > 100.4 Last Admin: 04/26/18 20:36 Dose: 650 mg Acetaminophen (Tylenol) 650 mg PO Q4H PRN PRN Reason: fever or mild pain Hydrocodone Bitart/Acetaminophen ([place] 10/325) 1 tab PO Q4H PRN PRN Reason: PAIN SCALE 6 TO 10 Hydrocodone Bitart/Acetaminophen ([place] 5/325) 1 tab PO Q4H PRN PRN Reason: PAIN SCALE 1 TO 5 Al Hydroxide/Mg Hydroxide (Milk Of Magnesia Liq) 30 ml PO Q12H PRN PRN Reason: Mild Constipation Amlodipine Besylate (Norvasc) 10 mg PO DAILY [facility] Last Admin: 04/28/18 09:24 Dose: 10 mg Aspirin (Aspirin Chew) 81 mg PO DAILY [facility] Last Admin: 04/28/18 09:24 Dose: 81 mg Bisacodyl (Dulcolax Supp) 10 mg RECTAL DAILY PRN PRN Reason: SEVERE CONSITIPATION Carvedilol (Coreg) 3.125 mg PO BID [facility] Last Admin: 04/28/18 21:30 Dose: 3.125 mg Heparin Sodium (Porcine) (Heparin Inj) 5,000 units SQ Q12H [facility] Last Admin: 04/28/18 21:29 Dose: 5,000 units Nitroglycerin/Dextrose (Nitroglycerin Drip Premix) 50 mg in 250 mls @ 0 mls/hr IV.CONT TITRATE PRN; Protocol PRN Reason: Per Protocol Lactulose (Lactulose Liq) 30 ml PO DAILY PRN PRN Reason: SEVERE CONSITIPATION Lisinopril (Prinivil) 40 mg PO DAILY [facility] Last Admin: 04/28/18 09:23 Dose: 40 mg Ondansetron HCl (Zofran Inj) 4 mg IV.PUSH Q6H PRN PRN Reason: NAUSEA OR VOMITING Last Admin: 04/28/18 21:06 Dose: 4 mg Sennosides (Senokot) 17.2 mg PO Q12H PRN PRN Reason: Moderate Constipation Skin Test Antigens (Skin Test Result) 1 each OTHER Q24H [facility] Stop: 04/30/18 14:59 Last Admin: 04/28/18 17:19 Dose: 1 each Sodium Chloride (Ns Flush) 2 ml IV.FLUSH BID [facility] Last Admin: 04/28/18 21:31 Dose: 2 ml Sodium Chloride (Ns Flush) 2 ml IV.FLUSH PRN PRN PRN Reason: FLUSH AFTER USING IV ACCESS Trimethoprim/Sulfamethoxazole (Bactrim Ds) 1 tab PO Q12HR [facility] Last Admin: 04/28/18 21:31 Dose: Not Given Allergies Allergy/AdvReac Type Severity Reaction Status Date / Time ciprofloxacin Allergy Severe Hives Verified 04/26/18 05:31 cephalexin Allergy Intermediate hives Verified 04/26/18 05:31 nitrofurantoin Allergy Intermediate hives Verified 04/26/18 05:31 penicillamine Allergy Hives Verified 04/26/18 05:31 Home Medications Medication Instructions Recorded Confirmed Type amlodipine 5 mg PO DAILY 04/26/18 04/26/18 History lisinopril 40 mg PO DAILY 04/26/18 04/26/18 History Physical Exam Vital signs: Vital Signs 04/28/18 00:00 04/28/18 01:00 04/28/18 02:00 Temperature 98.6 F Pulse Rate 102 H 90 98 H Respiratory Rate 16 Blood Pressure 163/82 H Pulse Oximetry 96 04/28/18 03:00 04/28/18 04:00 04/28/18 05:00 Temperature 98.1 F Pulse Rate 119 H 94 H 92 H Respiratory Rate 16 Blood Pressure 148/69 H Pulse Oximetry 94 L 04/28/18 07:00 04/28/18 08:00 04/28/18 09:00 Temperature 98.2 F Pulse Rate 85 104 H 96 H Respiratory Rate Blood Pressure 147/86 H Pulse Oximetry 96 04/28/18 09:35 04/28/18 10:00 04/28/18 11:00 Temperature Pulse Rate 94 H 85 Respiratory Rate Blood Pressure Pulse Oximetry 95 04/28/18 12:00 04/28/18 13:00 04/28/18 14:00 Temperature 98.0 F Pulse Rate 96 H 112 H 102 H Respiratory Rate 16 Blood Pressure 134/80 Pulse Oximetry 96 04/28/18 15:00 04/28/18 16:00 04/28/18 16:15 Temperature Pulse Rate 115 H 105 H Respiratory Rate 16 16 Blood Pressure 140/64 Pulse Oximetry 97 04/28/18 16:30 04/28/18 17:00 04/28/18 17:30 Temperature Pulse Rate 105 H 103 H 100 H Respiratory Rate 16 16 16 Blood Pressure 143/72 H 139/78 149/80 H Pulse Oximetry 98 96 96 04/28/18 18:00 04/28/18 20:00 04/28/18 21:00 Temperature 98.2 F Pulse Rate 114 H 112 H Respiratory Rate 16 Blood Pressure 168/96 H Pulse Oximetry 93 L 93 L Intake & Output 04/28/18 04/28/18 04/29/18 06:59 18:59 06:59 Intake Total 720 / 720 1340 / 1340 Output Total 2300 / 2300 1475 / 1475 Balance -1580 / -1580 -135 / -135 Weight 88.3 kg Intake: Oral 720 / 720 1340 / 1340 Output: Urine 2300 / 2300 1250 / 1250 Pleural Fluid 225 / 225 Other: Date of Last Bowel Movement 04/27/18 04/27/18 04/27/18 Narrative: GENERAL: NAD, AAOx3 SKIN: Warm and dry. HEAD: Atraumatic. Normocephalic. EYES: Pupils equal and round. No scleral icterus. No injection or drainage. ENT: No nasal bleeding or discharge. Mucous membranes pink and moist. NECK: Trachea midline. No JVD. CARDIOVASCULAR: Regular rate and rhythm. RESPIRATORY: No accessory muscle use. Clear to auscultation. Breath sounds equal bilaterally. GASTROINTESTINAL: Abdomen soft, non-tender, nondistended. Hepatic and splenic margins not palpable. MUSCULOSKELETAL: Extremities without clubbing, cyanosis, or edema. No obvious deformities. NEUROLOGICAL: Awake and alert. No obvious cranial nerve deficits. Motor grossly within normal limits. Five out of 5 muscle strength in the arms and legs. Normal speech. PSYCHIATRIC: Appropriate mood and affect; insight and judgment normal. Results 04/28/18 11:16 04/28/18 11:16 Cardiac Enzymes 04/27/18 Range/Units 04:41 B-Natriuretic Peptide 433 H (0-100) pg/mL Coagulation 04/27/18 04/28/18 Range/Units 04:41 14:40 PT 12.9 H (9.8-11.6) sec APTT 32.2 H (23.4-31.7) sec B-Natriuretic Peptide 433 H (0-100) pg/mL CBC 04/27/18 04/28/18 Range/Units 04:41 11:16 WBC 10.5 9.8 (4.0-11.0) th/mm3 RBC 4.56 4.86 (4.50-5.90) mil/mm3 Hgb 12.5 L D 13.6 (13.0-17.0) gm/dL Hct 38.1 L 40.0 (39.0-51.0) % Plt Count 184 D 218 (150-450) th/mm3 Comprehensive Metabolic Panel 04/27/18 04/28/18 Range/Units 04:41 11:16 Sodium 141 139 (136-145) meq/L Potassium 3.5 3.6 (3.5-5.1) meq/L Chloride 106 103 (98-107) meq/L Carbon Dioxide 27.0 28.6 (21.0-32.0) meq/L BUN 36 H 32 H (7-18) mg/dL Creatinine 2.13 H 2.15 H (0.60-1.30) mg/dL Calcium 8.7 8.9 (8.5-10.1) mg/dL Intake and Output 04/28/18 04/28/18 04/29/18 14:59 22:59 06:59 Intake Total 1340 / 1340 Output Total 1475 / 1475 Balance -135 / -135 Intake: Oral 1340 / 1340 Output: Urine 1250 / 1250 Pleural Fluid 225 / 225 Other: Date of Last Bowel Movement 04/27/18 04/27/18 - Imaging and Cardiology Imaging: Impressions Pericardiocentesis 04/28/18 00:00 CONCLUSION: 1. Uncomplicated CT guided pericardial drainage catheter placement, as above. Assessment and Plan - Assessment (1) Acute CHF (congestive heart failure) Code(s): I50.9 - Heart failure, unspecified Status: Acute (2) Elevated troponin Code(s): R74.8 - Abnormal levels of other serum enzymes Status: Acute - Plan 1. Acute heart failure secondary to salt indiscretion. Con't diuresis Decrease salt intake 2. Hypertensive urgency with a blood pressure of 215/123 on arrival. Blood pressure control Will increase Norvasc to 10mg daily 3. History of bladder cancer and prostate cancer. 4. Minimally elevated troponin secondary to fluid overload state, renal impairment and hypertensive urgency. No sign of ACS With EF now looking like 20%, plan for cardiac catheterization possible Wednesday 5. Pericardial effusion with coagulum Mantoux (PPD) test placed Previously travelled all over the [place], doubt TB as a cause but should be ruled out Obtain imaging from [facility] With bladder and prostate cancer, the chances of the effusion being malignant would be very small (usually lung, breast CA) Plan for pericardiocentesis due to questionable pre-tamponade physiology, appearing worse than 2 days ago on echo, concern for right atrial buckling Also allow for diagnostic purposes (cytology, acid fast)
[2018-04-29] MEDS: Heparin - SQ 10,000 UNITS/ML Vial SQ SCH ×2 (09:14→20:29)
[2018-04-29] MEDS: Lisinopril 20 MG Tablet PO SCH (09:15)
[2018-04-29] MEDS: amLODIPine 10 MG Tablet PO SCH (09:16)
--- NOTE | 2018-04-29 12:29 | P.PNCA ---
Subjective Interval history: No events overnight Feels well Pericardial drain 350 overnight Medications and Allergies Active Medications: Active Medications Acetaminophen (Tylenol) 650 mg PO Q4H PRN PRN Reason: Temp > 100.4 Last Admin: 04/26/18 20:36 Dose: 650 mg Acetaminophen (Tylenol) 650 mg PO Q4H PRN PRN Reason: fever or mild pain Hydrocodone Bitart/Acetaminophen ([place] 10/325) 1 tab PO Q4H PRN PRN Reason: PAIN SCALE 6 TO 10 Hydrocodone Bitart/Acetaminophen ([place] 5/325) 1 tab PO Q4H PRN PRN Reason: PAIN SCALE 1 TO 5 Al Hydroxide/Mg Hydroxide (Milk Of Magnesia Liq) 30 ml PO Q12H PRN PRN Reason: Mild Constipation Amlodipine Besylate (Norvasc) 10 mg PO DAILY [facility] Last Admin: 04/29/18 09:16 Dose: 10 mg Aspirin (Aspirin Chew) 81 mg PO DAILY [facility] Last Admin: 04/29/18 09:15 Dose: 81 mg Bisacodyl (Dulcolax Supp) 10 mg RECTAL DAILY PRN PRN Reason: SEVERE CONSITIPATION Carvedilol (Coreg) 3.125 mg PO BID [facility] Last Admin: 04/29/18 09:15 Dose: 3.125 mg Heparin Sodium (Porcine) (Heparin Inj) 5,000 units SQ Q12H [facility] Last Admin: 04/29/18 09:14 Dose: 5,000 units Nitroglycerin/Dextrose (Nitroglycerin Drip Premix) 50 mg in 250 mls @ 0 mls/hr IV.CONT TITRATE PRN; Protocol PRN Reason: Per Protocol Lactulose (Lactulose Liq) 30 ml PO DAILY PRN PRN Reason: SEVERE CONSITIPATION Lisinopril (Prinivil) 40 mg PO DAILY [facility] Last Admin: 04/29/18 09:15 Dose: 40 mg Ondansetron HCl (Zofran Inj) 4 mg IV.PUSH Q6H PRN PRN Reason: NAUSEA OR VOMITING Last Admin: 04/28/18 21:06 Dose: 4 mg Sennosides (Senokot) 17.2 mg PO Q12H PRN PRN Reason: Moderate Constipation Skin Test Antigens (Skin Test Result) 1 each OTHER Q24H [facility] Stop: 04/30/18 14:59 Last Admin: 04/28/18 17:19 Dose: 1 each Sodium Chloride (Ns Flush) 2 ml IV.FLUSH BID [facility] Last Admin: 04/29/18 09:19 Dose: 2 ml Sodium Chloride (Ns Flush) 2 ml IV.FLUSH PRN PRN PRN Reason: FLUSH AFTER USING IV ACCESS Trimethoprim/Sulfamethoxazole (Bactrim Ds) 1 tab PO Q12HR [facility] Last Admin: 04/29/18 09:15 Dose: 1 tab Allergies Allergy/AdvReac Type Severity Reaction Status Date / Time ciprofloxacin Allergy Severe Hives Verified 04/26/18 05:31 cephalexin Allergy Intermediate hives Verified 04/26/18 05:31 nitrofurantoin Allergy Intermediate hives Verified 04/26/18 05:31 penicillamine Allergy Hives Verified 04/26/18 05:31 Home Medications Medication Instructions Recorded Confirmed Type amlodipine 5 mg PO DAILY 04/26/18 04/26/18 History lisinopril 40 mg PO DAILY 04/26/18 04/26/18 History Physical Exam Vital signs: Vital Signs 04/28/18 13:00 04/28/18 14:00 04/28/18 15:00 Temperature Pulse Rate 112 H 102 H 115 H Respiratory Rate Blood Pressure Pulse Oximetry 04/28/18 16:00 04/28/18 16:15 04/28/18 16:30 Temperature Pulse Rate 105 H 105 H Respiratory Rate 16 16 16 Blood Pressure 140/64 143/72 H Pulse Oximetry 97 98 04/28/18 17:00 04/28/18 17:30 04/28/18 18:00 Temperature Pulse Rate 103 H 100 H 114 H Respiratory Rate 16 16 Blood Pressure 139/78 149/80 H Pulse Oximetry 96 96 04/28/18 19:00 04/28/18 20:00 04/28/18 21:00 Temperature 98.2 F Pulse Rate 123 H 114 H 116 H Respiratory Rate 16 Blood Pressure 168/96 H Pulse Oximetry 93 L 93 L 04/28/18 22:00 04/28/18 23:00 04/29/18 00:00 Temperature Pulse Rate 120 H 117 H 118 H Respiratory Rate Blood Pressure Pulse Oximetry 04/29/18 01:00 04/29/18 02:00 04/29/18 03:00 Temperature 98.2 F 98.8 F Pulse Rate 122 H 114 H 91 H Respiratory Rate 16 18 Blood Pressure 149/70 H 142/98 H Pulse Oximetry 93 L 93 L 04/29/18 04:00 04/29/18 05:00 04/29/18 05:35 Temperature Pulse Rate 112 H 102 H 103 H Respiratory Rate Blood Pressure Pulse Oximetry 04/29/18 07:00 04/29/18 08:00 04/29/18 09:00 Temperature 99.0 F Pulse Rate 100 H 102 H 106 H Respiratory Rate 20 Blood Pressure 120/62 Pulse Oximetry 93 L 04/29/18 11:00 Temperature 98.4 F Pulse Rate 101 H Respiratory Rate 20 Blood Pressure 108/56 L Pulse Oximetry 96 Intake & Output 04/28/18 04/29/18 04/29/18 18:59 06:59 18:59 Intake Total 1340 / 1340 480 / 480 Output Total 1475 / 1475 1425 / 1425 Balance -135 / -135 -945 / -945 Intake: Oral 1340 / 1340 480 / 480 Output: Urine 1250 / 1250 1100 / 1100 Pleural Fluid 225 / 225 Wound Drainage 325 / 325 Left Upper Medial Chest 325 / 325 Other: Date of Last Bowel Movement 04/27/18 04/27/18 04/27/18 Narrative: GENERAL: NAD, AAOx3 SKIN: Warm and dry. HEAD: Atraumatic. Normocephalic. EYES: Pupils equal and round. No scleral icterus. No injection or drainage. ENT: No nasal bleeding or discharge. Mucous membranes pink and moist. NECK: Trachea midline. No JVD. CARDIOVASCULAR: Regular rate and rhythm. RESPIRATORY: No accessory muscle use. Clear to auscultation. Breath sounds equal bilaterally. GASTROINTESTINAL: Abdomen soft, non-tender, nondistended. Hepatic and splenic margins not palpable. MUSCULOSKELETAL: Extremities without clubbing, cyanosis, or edema. No obvious deformities. NEUROLOGICAL: Awake and alert. No obvious cranial nerve deficits. Motor grossly within normal limits. Five out of 5 muscle strength in the arms and legs. Normal speech. PSYCHIATRIC: Appropriate mood and affect; insight and judgment normal. Results 04/28/18 11:16 04/28/18 11:16 Coagulation 04/28/18 Range/Units 14:40 PT 12.9 H (9.8-11.6) sec APTT 32.2 H (23.4-31.7) sec CBC 04/28/18 Range/Units 11:16 WBC 9.8 (4.0-11.0) th/mm3 RBC 4.86 (4.50-5.90) mil/mm3 Hgb 13.6 (13.0-17.0) gm/dL Hct 40.0 (39.0-51.0) % Plt Count 218 (150-450) th/mm3 Comprehensive Metabolic Panel 04/28/18 Range/Units 11:16 Sodium 139 (136-145) meq/L Potassium 3.6 (3.5-5.1) meq/L Chloride 103 (98-107) meq/L Carbon Dioxide 28.6 (21.0-32.0) meq/L BUN 32 H (7-18) mg/dL Creatinine 2.15 H (0.60-1.30) mg/dL Calcium 8.9 (8.5-10.1) mg/dL Intake and Output 04/28/18 04/29/18 04/29/18 22:59 06:59 14:59 Intake Total 1340 / 1340 480 / 480 Output Total 1475 / 1475 1425 / 1425 Balance -135 / -135 -945 / -945 Intake: Oral 1340 / 1340 480 / 480 Output: Urine 1250 / 1250 1100 / 1100 Pleural Fluid 225 / 225 Wound Drainage 325 / 325 Left Upper Medial Chest 325 / 325 Other: Date of Last Bowel Movement 04/27/18 04/27/18 04/27/18 - Imaging and Cardiology Imaging: Impressions Pericardiocentesis 04/28/18 00:00 CONCLUSION: 1. Uncomplicated CT guided pericardial drainage catheter placement, as above. Assessment and Plan - Assessment (1) Acute CHF (congestive heart failure) Code(s): I50.9 - Heart failure, unspecified Status: Acute (2) Elevated troponin Code(s): R74.8 - Abnormal levels of other serum enzymes Status: Acute - Plan 1. Acute heart failure secondary to salt indiscretion. Diuresed Decrease salt intake 2. Hypertensive urgency with a blood pressure of 215/123 on arrival. Blood pressure control Norvasc 10mg daily 3. History of bladder cancer and prostate cancer. 4. Minimally elevated troponin secondary to fluid overload state, renal impairment and hypertensive urgency. No sign of ACS With EF now looking like 20%, plan for cardiac catheterization possible Wednesday May need to have diagnostic depending on kidney function 5. Pericardial effusion with coagulum Mantoux (PPD) test placed Previously travelled all over the world, doubt TB as a cause but should be ruled out If negative today at 3pm, then can stop air borne precautions Obtain imaging from [facility] With bladder and prostate cancer, the chances of the effusion being malignant would be very small (usually lung, breast CA) Pericardiocentesis 350 overnight More serous, less likely to be malignant More likely due to CHF Await cytology Will continue with drain for now
--- NOTE | 2018-04-29 12:57 | P.PNIM ---
Subjective Interval history: no complaints. feeling well. Physical Exam Vital signs: Last Vital Signs Temp 98.4 F 04/29/18 11:00 Pulse 101 H 04/29/18 11:00 Resp 20 04/29/18 11:00 BP 108/56 L 04/29/18 11:00 Pulse Ox 96 04/29/18 11:00 Intake & Output 04/27/18 04/28/18 04/29/18 04/30/18 06:59 06:59 06:59 06:59 Intake Total 2280 / 2280 2160 / 2160 1820 / 1820 Output Total 1800 / 1800 4900 / 4900 2900 / 2900 Balance 480 / 480 -2740 / -2740 -1080 / -1080 Weight 88.3 kg Narrative: GENERAL: NAD SKIN: Warm and dry. HEENT: not pale,anicteric, moist oral mucous membranes. NECK: Trachea midline. No JVD. CARDIOVASCULAR: Regular rate and rhythm.pericardiocentesis tube insitu,little straw colored drain noted. RESPIRATORY: No accessory muscle use. Clear to auscultation. Breath sounds equal bilaterally. GASTROINTESTINAL: Abdomen soft, non-tender, nondistended. Hepatic and splenic margins not palpable. MUSCULOSKELETAL: Extremities without clubbing, cyanosis, or edema. No obvious deformities. NEUROLOGICAL: Awake and alert. AAOx3. No obvious cranial nerve deficits. No focal deficits. Normal speech. PSYCHIATRIC: Appropriate mood and affect; insight and judgment normal. Results Labs CBC & Chem 7: 04/28/18 11:16 04/28/18 11:16 Labs: Microbiology 04/28/18 13:45 Fluid - Pericardial fluid Fungal Smear - Final No fungal elements seen 04/28/18 13:45 Fluid - Pericardial fluid Gram Stain - Final 04/26/18 08:20 Clean Catch Urine Urine Culture - Final Escherichia coli Imaging Imaging: Impressions Pericardiocentesis 04/28/18 00:00 CONCLUSION: 1. Uncomplicated CT guided pericardial drainage catheter placement, as above. Assessment and Plan (1) Acute CHF (congestive heart failure): Code(s): I50.9 - Heart failure, unspecified Status: Acute (2) Elevated troponin: Code(s): R74.8 - Abnormal levels of other serum enzymes Status: Acute Plan 72 y/o M with a dx of bladder cancer, prostate cancer, Stage III CKD, HTN. Patient presented to the ED with complaints of Shortness of breath. Patient was subsequently admitted for a CHF exacerbation and was started on IV lasix for diuresis. 1. Acute Systolic CHF exacerbation. Patient is now on room air and has been diuresed well. 2 D echo now shows EF less than 20%, small pericardial effusion--s/p pericardiocentesis PPD ordered by cardiology-awaiting read Continue Aspirin, Coreg started, continue lisinopril. 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 Elevated troponins likely 2/2 #1 Elevated troponin from systolic chf exac most likely Cardiology following continue asa, bb 3. UTI E coli, sensitive to Bactrim. Continue po bactrim. 4. HTN Continue lisinopril, BB. will continue to monitor and adjust his meds as needed. 5. CKD stage III Cr at baseline. avoid nephrotoxic agents. Heparin for dvt prophylaxis. _ (1) Acute CHF (congestive heart failure) Qualifiers: Heart failure type:
--- NOTE | 2018-04-29 14:13 | ECG ---
Date Performed: 04/28/2018 Time Performed: 20:43:26 PTAGE: 72 years EKG: Sinus tachycardia with PVCS Right ventricular hypertrophy Ant/septal and lateral T wave eder nges are probably due to ventricular hypertrophy Compared to PREVIOUS TRACING sinus rate is faster Abnormal ECG PREVIOUS TRACIN04/26/18 DOCTOR: [place] Interpretating Date/Time 04/29/2018 14:12:46
[2018-04-30] MEDS: Heparin - SQ 10,000 UNITS/ML Vial SQ SCH ×2 (08:21→20:47)
[2018-04-30] MEDS: Lisinopril 20 MG Tablet PO SCH (08:22)
[2018-04-30] MEDS: amLODIPine 10 MG Tablet PO SCH (08:22)
--- NOTE | 2018-04-30 09:58 | P.PNCA ---
Subjective Interval history: Pt feels well, still draining from pericardial drain, no sx. Medications and Allergies Active Medications: Active Medications Acetaminophen (Tylenol) 650 mg PO Q4H PRN PRN Reason: Temp > 100.4 Last Admin: 04/26/18 20:36 Dose: 650 mg Acetaminophen (Tylenol) 650 mg PO Q4H PRN PRN Reason: fever or mild pain Hydrocodone Bitart/Acetaminophen ([place] 10/325) 1 tab PO Q4H PRN PRN Reason: PAIN SCALE 6 TO 10 Hydrocodone Bitart/Acetaminophen ([place] 5/325) 1 tab PO Q4H PRN PRN Reason: PAIN SCALE 1 TO 5 Last Admin: 04/29/18 20:37 Dose: 1 tab Al Hydroxide/Mg Hydroxide (Milk Of Magnesia Liq) 30 ml PO Q12H PRN PRN Reason: Mild Constipation Amlodipine Besylate (Norvasc) 10 mg PO DAILY [facility] Last Admin: 04/30/18 08:22 Dose: 10 mg Aspirin (Aspirin Chew) 81 mg PO DAILY [facility] Last Admin: 04/30/18 08:21 Dose: 81 mg Bisacodyl (Dulcolax Supp) 10 mg RECTAL DAILY PRN PRN Reason: SEVERE CONSITIPATION Carvedilol (Coreg) 3.125 mg PO BID [facility] Last Admin: 04/30/18 08:22 Dose: 3.125 mg Heparin Sodium (Porcine) (Heparin Inj) 5,000 units SQ Q12H [facility] Last Admin: 04/30/18 08:21 Dose: 5,000 units Nitroglycerin/Dextrose (Nitroglycerin Drip Premix) 50 mg in 250 mls @ 0 mls/hr IV.CONT TITRATE PRN; Protocol PRN Reason: Per Protocol Lactulose (Lactulose Liq) 30 ml PO DAILY PRN PRN Reason: SEVERE CONSITIPATION Lisinopril (Prinivil) 40 mg PO DAILY [facility] Last Admin: 04/30/18 08:22 Dose: 40 mg Ondansetron HCl (Zofran Inj) 4 mg IV.PUSH Q6H PRN PRN Reason: NAUSEA OR VOMITING Last Admin: 04/28/18 21:06 Dose: 4 mg Sennosides (Senokot) 17.2 mg PO Q12H PRN PRN Reason: Moderate Constipation Last Admin: 04/29/18 20:37 Dose: 17.2 mg Skin Test Antigens (Skin Test Result) 1 each OTHER Q24H [facility] Stop: 04/30/18 14:59 Last Admin: 04/29/18 15:00 Dose: 1 each Sodium Chloride (Ns Flush) 2 ml IV.FLUSH BID [facility] Last Admin: 04/30/18 08:22 Dose: 2 ml Sodium Chloride (Ns Flush) 2 ml IV.FLUSH PRN PRN PRN Reason: FLUSH AFTER USING IV ACCESS Trimethoprim/Sulfamethoxazole (Bactrim Ds) 1 tab PO Q12HR [facility] Last Admin: 04/30/18 08:22 Dose: 1 tab Allergies Allergy/AdvReac Type Severity Reaction Status Date / Time ciprofloxacin Allergy Severe Hives Verified 04/26/18 05:31 cephalexin Allergy Intermediate hives Verified 04/26/18 05:31 nitrofurantoin Allergy Intermediate hives Verified 04/26/18 05:31 penicillamine Allergy Hives Verified 04/26/18 05:31 Home Medications Medication Instructions Recorded Confirmed Type amlodipine 5 mg PO DAILY 04/26/18 04/26/18 History lisinopril 40 mg PO DAILY 04/26/18 04/26/18 History Physical Exam Vital signs: Vital Signs 04/29/18 10:00 04/29/18 11:00 04/29/18 12:00 Temperature 98.4 F Pulse Rate 100 H 100 H 98 H Respiratory Rate 20 Blood Pressure 108/56 L Pulse Oximetry 96 04/29/18 13:00 04/29/18 14:00 04/29/18 15:00 Temperature 99.2 F Pulse Rate 100 H 96 H 98 H Respiratory Rate 20 Blood Pressure 118/66 Pulse Oximetry 94 L 04/29/18 16:00 04/29/18 16:05 04/29/18 17:00 Temperature Pulse Rate 98 H 98 H Respiratory Rate 17 Blood Pressure Pulse Oximetry 04/29/18 18:00 04/29/18 19:00 04/29/18 20:00 Temperature 98.3 F Pulse Rate 98 H 99 H 94 H Respiratory Rate 20 Blood Pressure 124/66 Pulse Oximetry 96 04/29/18 21:00 04/29/18 21:09 04/29/18 22:00 Temperature Pulse Rate 96 H 98 H Respiratory Rate Blood Pressure Pulse Oximetry 95 04/29/18 23:00 04/30/18 00:00 04/30/18 01:00 Temperature 98 F Pulse Rate 92 H 92 H 89 Respiratory Rate 18 Blood Pressure 100/61 Pulse Oximetry 95 04/30/18 02:00 04/30/18 03:00 04/30/18 04:00 Temperature 98.1 F Pulse Rate 92 H 90 90 Respiratory Rate 18 Blood Pressure 99/58 L Pulse Oximetry 94 L 04/30/18 05:00 04/30/18 05:57 04/30/18 07:00 Temperature 97.6 F Pulse Rate 94 H 91 H 96 H Respiratory Rate 16 Blood Pressure 129/68 Pulse Oximetry 93 L Intake & Output 04/29/18 04/30/18 04/30/18 18:59 06:59 18:59 Intake Total 1280 / 1280 480 / 480 Output Total 700 / 700 850 / 850 Balance 580 / 580 -370 / -370 Weight 88 kg Intake: Oral 1280 / 1280 480 / 480 Output: Urine 550 / 550 700 / 700 Wound Drainage 150 / 150 150 / 150 Left Upper Medial Chest 150 / 150 150 / 150 Other: Date of Last Bowel Movement 04/27/18 04/27/18 # Bowel Movements 0 - Constitutional no acute distress - Routine HEENT Exam Head: Present: normocephalic Eye: Present: EOMI ENT: Present: mucous membranes moist - Routine Neck Exam Present: supple. Absent: JVD - Routine Respiratory Exam Present: CTA bilaterally - Routine Cardiovascular Exam Present: RRR. Absent: murmur - Routine Extremities Exam Absent: edema Results 04/28/18 11:16 04/28/18 11:16 Coagulation 04/28/18 Range/Units 14:40 PT 12.9 H (9.8-11.6) sec APTT 32.2 H (23.4-31.7) sec CBC 04/28/18 Range/Units 11:16 WBC 9.8 (4.0-11.0) th/mm3 RBC 4.86 (4.50-5.90) mil/mm3 Hgb 13.6 (13.0-17.0) gm/dL Hct 40.0 (39.0-51.0) % Plt Count 218 (150-450) th/mm3 Comprehensive Metabolic Panel 04/28/18 Range/Units 11:16 Sodium 139 (136-145) meq/L Potassium 3.6 (3.5-5.1) meq/L Chloride 103 (98-107) meq/L Carbon Dioxide 28.6 (21.0-32.0) meq/L BUN 32 H (7-18) mg/dL Creatinine 2.15 H (0.60-1.30) mg/dL Calcium 8.9 (8.5-10.1) mg/dL Intake and Output 04/29/18 04/30/18 04/30/18 22:59 06:59 14:59 Intake Total 1280 / 1280 480 / 480 Output Total 700 / 700 850 / 850 Balance 580 / 580 -370 / -370 Intake: Oral 1280 / 1280 480 / 480 Output: Urine 550 / 550 700 / 700 Wound Drainage 150 / 150 150 / 150 Left Upper Medial Chest 150 / 150 150 / 150 Other: Date of Last Bowel Movement 04/27/18 04/27/18 # Bowel Movements 0 Weight 88 kg - Imaging and Cardiology Imaging: Impressions Pericardiocentesis 04/28/18 00:00 CONCLUSION: 1. Uncomplicated CT guided pericardial drainage catheter placement, as above. Assessment and Plan - Assessment (1) Acute CHF (congestive heart failure) Code(s): I50.9 - Heart failure, unspecified Status: Acute (2) Elevated troponin Code(s): R74.8 - Abnormal levels of other serum enzymes Status: Acute - Plan 1. Acute heart failure secondary to salt indiscretion. Diuresed Decrease salt intake 2. Hypertensive urgency with a blood pressure of 215/123 on arrival. Blood pressure control Norvasc 10mg daily 3. History of bladder cancer and prostate cancer. 4. Minimally elevated troponin secondary to fluid overload state, renal impairment and hypertensive urgency. No sign of ACS With EF now looking like 20%, plan for cardiac catheterization possible Wednesday May need to have diagnostic depending on kidney function 5. Pericardial effusion with coagulum Mantoux (PPD) test placed Previously travelled all over the world, doubt TB as a cause but should be ruled out Obtain imaging from [facility] With bladder and prostate cancer, the chances of the effusion being malignant would be very small (usually lung, breast CA) Pericardiocentesis 300 overnight More serous, less likely to be malignant More likely due to CHF Await cytology Will continue with drain for now given significant volume still draining, will reassess tomorrow.
--- NOTE | 2018-04-30 15:53 | P.PNIM ---
Subjective Interval history: no new complaints. Patient and his had concerns about contrast exposure should cardiac cath given his CKD. Physical Exam Vital signs: Last Vital Signs Temp 98.3 F 04/30/18 15:00 Pulse 91 H 04/30/18 15:00 Resp 16 04/30/18 15:00 BP 92/51 L 04/30/18 15:00 Pulse Ox 92 L 04/30/18 15:00 Intake & Output 04/28/18 04/29/18 04/30/18 05/01/18 06:59 06:59 06:59 06:59 Intake Total 2160 / 2160 1820 / 1820 1760 / 1760 Output Total 4900 / 4900 2900 / 2900 1550 / 1550 Balance -2740 / -2740 -1080 / -1080 210 / 210 Weight 88.3 kg 88 kg Narrative: GENERAL: NAD SKIN: Warm and dry. HEENT: not pale,anicteric, moist oral mucous membranes. NECK: Trachea midline. No JVD. CARDIOVASCULAR: Regular rate and rhythm.pericardiocentesis tube insitu,little straw colored drain noted. RESPIRATORY: No accessory muscle use. Clear to auscultation. Breath sounds equal bilaterally. GASTROINTESTINAL: Abdomen soft, non-tender, nondistended. Hepatic and splenic margins not palpable. MUSCULOSKELETAL: Extremities without clubbing, cyanosis, or edema. No obvious deformities. NEUROLOGICAL: Awake and alert. AAOx3. No obvious cranial nerve deficits. No focal deficits. Normal speech. PSYCHIATRIC: Appropriate mood and affect; insight and judgment normal. Results Labs CBC & Chem 7: 04/28/18 11:16 05/01/18 06:45 Labs: Microbiology 04/28/18 13:45 Fluid - Pericardial fluid Gram Stain - Final 04/28/18 13:45 Fluid - Pericardial fluid Body Fluid Culture - Preliminary No growth in 48 hours 04/28/18 13:45 Fluid - Pericardial fluid Acid Fast Bacilli Smear - Final No acid fast bacilli seen Assessment and Plan (1) Acute CHF (congestive heart failure): Code(s): I50.9 - Heart failure, unspecified Status: Acute (2) Elevated troponin: Code(s): R74.8 - Abnormal levels of other serum enzymes Status: Acute Plan 72 y/o M with a dx of bladder cancer, prostate cancer, Stage III CKD, HTN. Patient presented to the ED with complaints of Shortness of breath. Patient was subsequently admitted for a CHF exacerbation and was started on IV lasix for diuresis. 1. Acute Systolic CHF exacerbation. Patient is now on room air and has been diuresed well. 2 D echo now shows EF less than 20%, small pericardial effusion--s/p pericardiocentesis PPD ordered by cardiology-awaiting read Continue Aspirin, Coreg started, continue lisinopril. 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 Elevated troponins likely /2 #1 Elevated troponin from systolic chf exac most likely Cardiology following continue asa, bb 3. UTI E coli, sensitive to Bactrim which he has been on, now worsening renal function. Hold Bactrim, switch to renally adjusted Aztreonam given h/o multiple allergies. 4. HTN Continue lisinopril, BB. will continue to monitor and adjust his meds as needed. 5. Acute kidney injury on CKD stage III-- Cr worsened to 2.89 today,patient was started on Bactrim for UTI, likely this worsened Cr. Hold Bactrim for now, hold Lisinopril. avoid nephrotoxic agents. Heparin for dvt prophylaxis. _ (1) Acute CHF (congestive heart failure) Qualifiers: Heart failure type:
[2018-04-30 16:44] LABS: Calcium 8.8 mg/dL (8.5-10.1); Carbon Dioxide 31.6 meq/L (21.0-32.0); Potassium 4.4 meq/L (3.5-5.1)
[2018-04-30] MEDS: Aztreonam Inj 500 MG in Sodium Chlor 0.9% Inj 100 ML IV.SIG SCH (19:00)
[2018-05-01] MEDS: Aztreonam Inj 500 MG in Sodium Chlor 0.9% Inj 100 ML IV.SIG SCH ×2 (05:53→17:24)
[2018-05-01 07:59] LABS: Calcium 8.4 mg/dL (8.5-10.1); Carbon Dioxide 22.3 meq/L (21.0-32.0); Potassium 4.3 meq/L (3.5-5.1)
[2018-05-01] MEDS: Heparin - SQ 10,000 UNITS/ML Vial SQ SCH ×2 (09:24→20:55)
[2018-05-01] MEDS: amLODIPine 10 MG Tablet PO SCH (09:57)
--- NOTE | 2018-05-01 10:47 | P.PNCA ---
Subjective Interval history: Pt w/o sx, negligible drainage from pericardial drain Medications and Allergies Active Medications: Active Medications Acetaminophen (Tylenol) 650 mg PO Q4H PRN PRN Reason: Temp > 100.4 Last Admin: 04/26/18 20:36 Dose: 650 mg Acetaminophen (Tylenol) 650 mg PO Q4H PRN PRN Reason: fever or mild pain Hydrocodone Bitart/Acetaminophen ([place] 10/325) 1 tab PO Q4H PRN PRN Reason: PAIN SCALE 6 TO 10 Hydrocodone Bitart/Acetaminophen ([place] 5/325) 1 tab PO Q4H PRN PRN Reason: PAIN SCALE 1 TO 5 Last Admin: 04/30/18 20:51 Dose: 1 tab Al Hydroxide/Mg Hydroxide (Milk Of Magnesia Liq) 30 ml PO Q12H PRN PRN Reason: Mild Constipation Amlodipine Besylate (Norvasc) 10 mg PO DAILY [facility] Last Admin: 05/01/18 09:57 Dose: Not Given Aspirin (Aspirin Chew) 81 mg PO DAILY [facility] Last Admin: 05/01/18 08:40 Dose: 81 mg Bisacodyl (Dulcolax Supp) 10 mg RECTAL DAILY PRN PRN Reason: SEVERE CONSITIPATION Carvedilol (Coreg) 3.125 mg PO BID [facility] Last Admin: 05/01/18 08:40 Dose: 3.125 mg Heparin Sodium (Porcine) (Heparin Inj) 5,000 units SQ Q12H [facility] Last Admin: 05/01/18 09:24 Dose: 5,000 units Nitroglycerin/Dextrose (Nitroglycerin Drip Premix) 50 mg in 250 mls @ 0 mls/hr IV.CONT TITRATE PRN; Protocol PRN Reason: Per Protocol Aztreonam 500 mg/ Sodium (Chloride) 100 mls @ 200 mls/hr IV.SIG Q12H [facility] Last Infusion: 05/01/18 06:23 Dose: Infused Lactulose (Lactulose Liq) 30 ml PO DAILY PRN PRN Reason: SEVERE CONSITIPATION Lisinopril (Prinivil) 40 mg PO DAILY [facility] Last Admin: 04/30/18 08:22 Dose: 40 mg Ondansetron HCl (Zofran Inj) 4 mg IV.PUSH Q6H PRN PRN Reason: NAUSEA OR VOMITING Last Admin: 04/28/18 21:06 Dose: 4 mg Sennosides (Senokot) 17.2 mg PO Q12H PRN PRN Reason: Moderate Constipation Last Admin: 04/30/18 20:45 Dose: 17.2 mg Sodium Chloride (Ns Flush) 2 ml IV.FLUSH BID [facility] Last Admin: 05/01/18 09:25 Dose: 2 ml Sodium Chloride (Ns Flush) 2 ml IV.FLUSH PRN PRN PRN Reason: FLUSH AFTER USING IV ACCESS Allergies Allergy/AdvReac Type Severity Reaction Status Date / Time ciprofloxacin Allergy Severe Hives Verified 04/26/18 05:31 cephalexin Allergy Intermediate hives Verified 04/26/18 05:31 nitrofurantoin Allergy Intermediate hives Verified 04/26/18 05:31 penicillamine Allergy Hives Verified 04/26/18 05:31 Home Medications Medication Instructions Recorded Confirmed Type amlodipine 5 mg PO DAILY 04/26/18 04/26/18 History lisinopril 40 mg PO DAILY 04/26/18 04/26/18 History Physical Exam Vital signs: Vital Signs 04/30/18 11:00 04/30/18 12:00 04/30/18 13:00 Temperature 98.2 F Pulse Rate 89 100 H 88 Respiratory Rate 16 Blood Pressure 111/57 L Pulse Oximetry 94 L 04/30/18 14:00 04/30/18 15:00 04/30/18 16:00 Temperature 98.3 F Pulse Rate 96 H 93 H 92 H Respiratory Rate 16 Blood Pressure 92/51 L Pulse Oximetry 92 L 04/30/18 17:00 04/30/18 18:00 04/30/18 19:00 Temperature 98.3 F Pulse Rate 92 H 100 H 98 H Respiratory Rate 16 Blood Pressure 123/69 Pulse Oximetry 97 04/30/18 20:00 04/30/18 21:00 04/30/18 22:00 Temperature Pulse Rate 96 H 96 H 98 H Respiratory Rate Blood Pressure Pulse Oximetry 97 04/30/18 23:00 05/01/18 00:00 05/01/18 00:03 Temperature Pulse Rate 99 H 86 91 H Respiratory Rate 16 Blood Pressure 120/62 Pulse Oximetry 95 05/01/18 01:00 05/01/18 02:00 05/01/18 03:00 Temperature Pulse Rate 86 86 88 Respiratory Rate Blood Pressure Pulse Oximetry 05/01/18 04:00 05/01/18 04:14 05/01/18 05:00 Temperature Pulse Rate 90 92 H 88 Respiratory Rate 16 Blood Pressure 127/67 Pulse Oximetry 95 05/01/18 06:00 05/01/18 07:00 05/01/18 08:00 Temperature Pulse Rate 86 87 100 H Respiratory Rate Blood Pressure Pulse Oximetry 05/01/18 08:24 05/01/18 08:25 05/01/18 09:00 Temperature 97.8 F Pulse Rate 94 H 90 Respiratory Rate 17 Blood Pressure 120/63 Pulse Oximetry 94 L 94 L Intake & Output 04/30/18 05/01/18 05/01/18 18:59 06:59 18:59 Intake Total 680 / 680 Output Total 1460 / 1460 Balance -780 / -780 Weight 88 kg Intake: IV 200 / 200 Azactam Inj 500 MG In NS Inj 200 / 200 100 ML @ 200 mls/hr IV.SIG Q12H [facility] Rx#:[id number] Oral 480 / 480 Output: Urine 1450 / 1450 Wound Drainage Left Upper Medial Chest Other: Date of Last Bowel Movement 05/01/18 # Bowel Movements 0 - Constitutional no acute distress - Routine HEENT Exam Head: Present: normocephalic - Routine Neck Exam Present: supple. Absent: JVD - Routine Respiratory Exam Present: CTA bilaterally - Routine Cardiovascular Exam Present: RRR. Absent: murmur - Routine Abdominal Exam Present: soft - Routine Extremities Exam Absent: edema Results 04/28/18 11:16 05/01/18 06:45 Comprehensive Metabolic Panel 04/30/18 05/01/18 Range/Units 15:10 06:45 Sodium 138 137 (136-145) meq/L Potassium 4.4 4.3 (3.5-5.1) meq/L Chloride 102 107 (98-107) meq/L Carbon Dioxide 31.6 22.3 D (21.0-32.0) meq/L BUN 49 H 42 H (7-18) mg/dL Creatinine 2.89 H 2.50 H (0.60-1.30) mg/dL Calcium 8.8 8.4 L (8.5-10.1) mg/dL Intake and Output 04/30/18 05/01/18 05/01/18 22:59 06:59 14:59 Intake Total 100 / 100 580 / 580 Output Total 1460 / 1460 Balance 100 / 100 -880 / -880 Intake: IV 100 / 100 100 / 100 Azactam Inj 500 MG In NS Inj 100 / 100 100 / 100 100 ML @ 200 mls/hr IV.SIG Q12H [facility] Rx#:[id number] Oral 480 / 480 Output: Urine 1450 / 1450 Wound Drainage Left Upper Medial Chest Other: Date of Last Bowel Movement 05/01/18 # Bowel Movements 0 Weight 88 kg Assessment and Plan - Assessment (1) Acute CHF (congestive heart failure) Code(s): I50.9 - Heart failure, unspecified Status: Acute (2) Elevated troponin Code(s): R74.8 - Abnormal levels of other serum enzymes Status: Acute - Plan 1. Acute heart failure secondary to salt indiscretion. Diuresed Decrease salt intake 2. Hypertensive urgency with a blood pressure of 215/123 on arrival. Blood pressure control Norvasc 10mg daily 3. History of bladder cancer and prostate cancer. 4. Minimally elevated troponin secondary to fluid overload state, renal impairment and hypertensive urgency. No sign of ACS With EF now looking like 20%, plan for cardiac catheterization possible Wednesday May need to have diagnostic depending on kidney function 5. Pericardial effusion with coagulum Mantoux (PPD) test placed Previously travelled all over the [place], doubt TB as a cause but should be ruled out Obtain imaging from [facility] With bladder and prostate cancer, the chances of the effusion being malignant would be very small (usually lung, breast CA) Pericardiocentesis ; fluid drainage has essentially stopped, will have drain pulled, put in for limited echo tomorrow NPO past midnight, Dr. hernandez will resume care tomorrow.
--- NOTE | 2018-05-01 15:41 | P.PNIM ---
Subjective Interval history: Patient seen and examined this morning. patient has no complaints. anticipating removal of pericardiocentesis tube today,would like some pain medication prior to removal. Physical Exam Vital signs: Last Vital Signs Temp 98 F 05/01/18 12:21 Pulse 88 05/01/18 13:00 Resp 17 05/01/18 12:21 BP 113/65 05/01/18 12:21 Pulse Ox 95 05/01/18 12:21 Intake & Output 04/29/18 04/30/18 05/01/18 05/02/18 06:59 06:59 06:59 06:59 Intake Total 1820 / 1820 1760 / 1760 680 / 680 Output Total 2900 / 2900 1550 / 1550 1460 / 1460 Balance -1080 / -1080 210 / 210 -780 / -780 Weight 88 kg 88 kg Narrative: GENERAL: NAD SKIN: Warm and dry. HEENT: not pale,anicteric, moist oral mucous membranes. NECK: Trachea midline. No JVD. CARDIOVASCULAR: Regular rate and rhythm.pericardiocentesis tube in situ,no drainage noted. RESPIRATORY: No accessory muscle use. Clear to auscultation. Breath sounds equal bilaterally. GASTROINTESTINAL: Abdomen soft, non-tender, nondistended. Hepatic and splenic margins not palpable. MUSCULOSKELETAL: Extremities without clubbing, cyanosis, or edema. No obvious deformities. NEUROLOGICAL: Awake and alert. AAOx3. No obvious cranial nerve deficits. No focal deficits. Normal speech. PSYCHIATRIC: Appropriate mood and affect; insight and judgment normal. Results Labs CBC & Chem 7: 04/28/18 11:16 05/01/18 06:45 Labs: Microbiology 04/28/18 13:45 Fluid - Pericardial fluid Gram Stain - Final 04/28/18 13:45 Fluid - Pericardial fluid Body Fluid Culture - Final No growth in 72 hours (aerobically and anaerobically ) Assessment and Plan (1) Acute CHF (congestive heart failure): Code(s): I50.9 - Heart failure, unspecified Status: Acute (2) Elevated troponin: Code(s): R74.8 - Abnormal levels of other serum enzymes Status: Acute Plan 72 y/o M with a dx of bladder cancer, prostate cancer, Stage III CKD, HTN. Patient presented to the ED with complaints of Shortness of breath. Patient was subsequently admitted for a CHF exacerbation and was started on IV lasix for diuresis. 1. Acute Systolic CHF exacerbation. Patient is now on room air and has been diuresed well. 2 D echo now shows EF less than 20%, small pericardial effusion--s/p pericardiocentesis PPD ordered by cardiology-awaiting read Continue Aspirin, Coreg started, continue lisinopril. estate planner planning for cardiac cath possibly on Tuesday 05/02, will depend on renal function now that cr had trended up. 2. Elevated troponin likely secondary to systolic chf exac Cardiology following continue asa, bb 3. UTI E coli, sensitive to Bactrim which he has been on, noted worsening renal function on 04/30. Discontinued Bactrim, switch to renally adjusted Aztreonam given h/o multiple allergies. 4. HTN-BP within acceptable limits. Continue BB,Amlodipine.Hold Lisinopril given worsening renal function. will continue to monitor and adjust his meds as needed. 5. Acute kidney injury on CKD stage III-- Cr worsened to 2.89 today,patient was started on Bactrim for UTI, likely this worsened Cr. Discontinued Bactrim, hold Lisinopril for now. avoid nephrotoxic agents. Heparin for dvt prophylaxis. _ (1) Acute CHF (congestive heart failure) Qualifiers: Heart failure type:
--- NOTE | 2018-05-01 22:06 | P.PNIM ---
Subjective Interval history: not seen Physical Exam Vital signs: Last Vital Signs Temp 98.1 F 05/01/18 19:00 Pulse 87 05/01/18 19:00 Resp 16 05/01/18 19:00 BP 128/63 05/01/18 19:00 Pulse Ox 96 05/01/18 19:00 Intake & Output 04/29/18 04/30/18 05/01/18 05/02/18 06:59 06:59 06:59 06:59 Intake Total 1820 / 1820 1760 / 1760 680 / 680 820 / 820 Output Total 2900 / 2900 1550 / 1550 1460 / 1460 1100 / 1100 Balance -1080 / -1080 210 / 210 -780 / -780 -280 / -280 Weight 88 kg 88 kg Narrative: GENERAL: NAD SKIN: Warm and dry. HEENT: not pale,anicteric, moist oral mucous membranes. NECK: Trachea midline. No JVD. CARDIOVASCULAR: Regular rate and rhythm.pericardiocentesis tube in situ,no drainage noted. RESPIRATORY: No accessory muscle use. Clear to auscultation. Breath sounds equal bilaterally. GASTROINTESTINAL: Abdomen soft, non-tender, nondistended. Hepatic and splenic margins not palpable. MUSCULOSKELETAL: Extremities without clubbing, cyanosis, or edema. No obvious deformities. NEUROLOGICAL: Awake and alert. AAOx3. No obvious cranial nerve deficits. No focal deficits. Normal speech. PSYCHIATRIC: Appropriate mood and affect; insight and judgment normal. Results Labs CBC & Chem 7: 04/28/18 11:16 05/01/18 06:45 Labs: Microbiology 04/28/18 13:45 Fluid - Pericardial fluid Gram Stain - Final 04/28/18 13:45 Fluid - Pericardial fluid Body Fluid Culture - Final No growth in 72 hours (aerobically and anaerobically ) Imaging Imaging: ITS Impressions Chest X-Ray 04/26/18 05:49 CONCLUSION: Bibasilar areas of consolidation or atelectasis. Pericardiocentesis 04/28/18 00:00 CONCLUSION: 1. Uncomplicated CT guided pericardial drainage catheter placement, as above. Procedures Procedures: CT guided pericardial drainage Assessment and Plan (1) Acute CHF (congestive heart failure): Code(s): I50.9 - Heart failure, unspecified Status: Acute (2) Elevated troponin: Code(s): R74.8 - Abnormal levels of other serum enzymes Status: Acute Plan 72 y/o M with a dx of bladder cancer, prostate cancer, Stage III CKD, HTN. Patient presented to the ED with complaints of Shortness of breath. Patient was subsequently admitted for a CHF exacerbation and was started on IV lasix for diuresis. 1. Acute Systolic CHF exacerbation. Patient is now on room air and has been diuresed well. 2 D echo now shows EF less than 20%, small pericardial effusion--s/p pericardiocentesis PPD ordered by cardiology-awaiting read Continue Aspirin, Coreg started, continue lisinopril. 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 2. Elevated troponin likely secondary to systolic chf exac Cardiology following continue asa, bb 3. UTI E coli, sensitive to Bactrim which he has been on, noted worsening renal function on 04/30. Discontinued Bactrim, switch to renally adjusted Aztreonam given h/o multiple allergies. 4. HTN-BP within acceptable limits. Continue BB,Amlodipine.Hold Lisinopril given worsening renal function. will continue to monitor and adjust his meds as needed. 5. Acute kidney injury on CKD stage III-- Cr worsened to 2.89 today,patient was started on Bactrim for UTI, likely this worsened Cr. Discontinued Bactrim, hold Lisinopril for now. avoid nephrotoxic agents. Heparin for dvt prophylaxis. Progress Note: Quality VTE Deep Vein Thrombosis/Pulmonary Embolism Present on Admission: No _ (1) Acute CHF (congestive heart failure) Qualifiers: Heart failure type:
[2018-05-02] MEDS: Aztreonam Inj 500 MG in Sodium Chlor 0.9% Inj 100 ML IV.SIG SCH (06:02)
[2018-05-02] MEDS ORDERED: Heparin 10,000 UNITS/10 ML Vial (for IV use) ONE (07:57)
[2018-05-02] MEDS ORDERED: Heparin/NS PF Inj 1,500 ML ONE (07:57)
[2018-05-02] MEDS: Heparin - SQ 10,000 UNITS/ML Vial SQ SCH (08:54)
[2018-05-02] MEDS: amLODIPine 10 MG Tablet PO SCH (08:55)
--- NOTE | 2018-05-02 09:55 | P.DS ---
DS: Providers Date of admission: 04/26/18 07:53 Primary care physician: Chace San MD Consults: 04/26/18 15:08 Consult to Cardiology Routine Consulting Provider: David Fair Does the patient have a Slip Injector And Applicator who follows them?: No Preferred Bee Tender:: Fisher Oyster Physician Reason for Consultation: 72M with elevated BNP and bump in Troponins. No history of CHF, ECHO pending. Notified:: Service Spoke with:: Pricilla Date Notified:: 04/26/18 Time Notified:: 15:15 Ordering Provider: SUE Brief History from admission: 9-year-old male with a past medical history of bladder cancer, prostate cancer, stage III kidney disease, hypertension who presented to the ER this morning with shortness of breath. He states that he awoke early this morning to urinate and after being up to the bathroom had acute onset of shortness of breath that worsened despite rest. He denies that he had any chest pain, denies syncope. He does admit that through the holidays and over the past week he has been having increased sodium intake, sliding that he has had [place], soy sauce, smoked him, pickles, etc. Yesterday he had an MRI with contrast of his prostate, states that he felt funny afterwards. In the last 2 months he has been to [facility] and had to take multiple breaks due to calf pain that was made worse by extended ambulation. ER workup showed elevated BNP level, urinalysis shows he has a urinary tract infection. Patient denies any symptoms of UTI, denies any recent fevers. He denies any upper respiratory symptoms, no cough, no phlegm changes. He denies any nausea vomiting or diarrhea. DS: Diagnosis Discharge Diagnosis (1) Acute CHF (congestive heart failure): Status: Acute (2) Elevated troponin: Status: Acute DS: Summary 72 y/o M with a dx of bladder cancer, prostate cancer, Stage III CKD, HTN. Patient presented to the ED with complaints of Shortness of breath. Patient was subsequently admitted for a CHF exacerbation and was started on IV lasix for diuresis. 1. Acute Systolic CHF exacerbation. Patient is now on room air and has been diuresed well. 2 D echo now shows EF less than 20%, small pericardial effusion--s/p pericardiocentesis PPD ordered by cardiology-awaiting read Continue Aspirin, Coreg and lisinopril. nursing director planning for cardiac cath today pending repeat renal function. Patient now wants to be transferred to [place] where his family resides. Spoke with his daughter who is a hospitalist PA. Patient is a direct admit after discharge today from [place] and will be seen by the hospitalist and nursing director. 2. Elevated troponin likely secondary to systolic chf exac Cardiology following continue asa, bb 3. UTI E coli, sensitive to Bactrim which he has been on, noted worsening renal function on 04/30. Discontinued Bactrim, switch to renally adjusted Aztreonam given h/o multiple allergies. 4. HTN-BP within acceptable limits. Continue BB,Amlodipine.Hold Lisinopril given worsening renal function. will continue to monitor and adjust his meds as needed. 5. Acute kidney injury on CKD stage III-- Cr worsened after patient was started on Bactrim for UTI. Discontinued Bactrim, hold Lisinopril for now. avoid nephrotoxic agents. Heparin for dvt prophylaxis. Time Spent with Patient Total time spent providing and/or coordinating discharge services: Greater than 30 minutes Quality: VTE Deep Vein Thrombosis/Pulmonary Embolism Present on Admission: No Exam Narrative Exam Narrative: GENERAL: Well-developed, well-nourished in no distress SKIN: Warm and dry. CARDIOVASCULAR: Regular rate and rhythm. RESPIRATORY: No accessory muscle use. Clear to auscultation. Breath sounds equal bilaterally. GASTROINTESTINAL: Abdomen soft, non-tender, nondistended. MUSCULOSKELETAL: Extremities without clubbing, cyanosis, or edema. No obvious deformities. NEUROLOGICAL: Awake and alert. No obvious cranial nerve deficits. Motor grossly within normal limits. Five out of 5 muscle strength in the arms and legs. Normal speech. PSYCHIATRIC: Appropriate mood and affect; insight and judgment normal. Results Procedures completed during hospitalization: CT guided pericardial drainage Impressions ITS Impressions Chest X-Ray 04/26/18 05:49 CONCLUSION: Bibasilar areas of consolidation or atelectasis. Pericardiocentesis 04/28/18 00:00 CONCLUSION: 1. Uncomplicated CT guided pericardial drainage catheter placement, as above. Discharge Plan Discharge Disposition Patient Disposition: Discharge Home Discharge Condition Condition: Stable Discharge Order Discharge Orders: Discharge Order (Routine); Ordered 05/02/18 Ordered By: Deion Abando Discharge Details Anticipated Discharge Date: 05/02/18 Physicians Team Primary Care Provider: Chace San Attending Provider: Deion Ko Other Providers: David Fair Rxs /Orders / Referrals /Forms Prescriptions: New carvedilol [Coreg] 3.125 mg Tablet 3.125 mg PO BID Qty: 60 RF: 0 amlodipine [Norvasc] 10 mg Tablet 10 mg PO DAILY Qty: 30 RF: 0 aspirin 81 mg Tablet,Chewable 81 mg PO DAILY Qty: 30 RF: 0 Discontinued amlodipine 5 mg Tablet 5 mg PO DAILY RF: 0 lisinopril 40 mg Tablet 40 mg PO DAILY RF: 0 Referrals: Chace San MD [Primary Care Provider] - See Instructions (1 wk f/u) Primary Care Sue Rey [Family Provider] - See Instructions Discharge Instructions Patient Printed Instructions: Shortness of Breath (DC) Post Discharge Care Plan Care Plan Goals: Your Health Problems: Goals to Promote Your Health: * To prevent worsening of your condition * To maintain your health at the optimal level Directions to Meet Your Goals: * Take your medications as prescribed * Follow your dietary instruction * Follow activity as directed * Keep your appointments as scheduled * Take your immunizations and boosters as scheduled * If your symptoms worsen call your PCP * If no PCP go to Urgent Care or Emergency Room Smoking is dangerous to your health. Avoid second hand smoke. You may reach the 24-hour crisis hotline for domestic abuse at . Discharge Interventions Interventions: Discharge Planning - Case Management Last Done: 04/27/18 13:11 Status ED Status: Left Department
[2018-05-02 10:17] VITALS: BP 138/76; RESP 18; TEMP 98.2; O2SAT 95
[2018-05-02 11:05] VITALS: PULSE 74
--- NOTE | 2018-05-02 20:07 | P.PNCA ---
Subjective Interval history: No events overnight Feels well, no chest pain/SOB Medications and Allergies Allergies Allergy/AdvReac Type Severity Reaction Status Date / Time ciprofloxacin Allergy Severe Hives Verified 04/26/18 05:31 cephalexin Allergy Intermediate hives Verified 04/26/18 05:31 nitrofurantoin Allergy Intermediate hives Verified 04/26/18 05:31 penicillamine Allergy Hives Verified 04/26/18 05:31 Home Medications Medication Instructions Recorded Confirmed Type amlodipine 5 mg PO DAILY 04/26/18 04/26/18 History lisinopril 40 mg PO DAILY 04/26/18 04/26/18 History Physical Exam Vital signs: Vital Signs 05/01/18 21:00 05/01/18 22:00 05/01/18 23:00 Temperature Pulse Rate 90 88 90 Respiratory Rate 18 Blood Pressure 121/57 L Pulse Oximetry 95 05/02/18 00:00 05/02/18 01:00 05/02/18 02:00 Temperature Pulse Rate 92 H 86 102 H Respiratory Rate Blood Pressure Pulse Oximetry 05/02/18 03:00 05/02/18 04:00 05/02/18 05:00 Temperature Pulse Rate 93 H 86 86 Respiratory Rate Blood Pressure Pulse Oximetry 05/02/18 05:05 05/02/18 06:00 05/02/18 07:00 Temperature Pulse Rate 86 88 84 Respiratory Rate 16 Blood Pressure 128/69 Pulse Oximetry 96 05/02/18 08:00 05/02/18 09:00 05/02/18 10:00 Temperature 98.2 F Pulse Rate 86 94 H 87 Respiratory Rate 18 Blood Pressure 138/76 Pulse Oximetry 95 05/02/18 11:00 Temperature Pulse Rate 74 Respiratory Rate Blood Pressure Pulse Oximetry Intake & Output 05/02/18 05/02/18 05/03/18 06:59 18:59 06:59 Intake Total 480 / 480 Output Total 1700 / 1700 Balance -1220 / -1220 Weight 88.6 kg Intake: Oral 480 / 480 Output: Urine 1700 / 1700 Other: Date of Last Bowel Movement 05/01/18 Narrative: GENERAL: NAD, AAOx3 SKIN: Warm and dry. HEAD: Atraumatic. Normocephalic. EYES: Pupils equal and round. No scleral icterus. No injection or drainage. ENT: No nasal bleeding or discharge. Mucous membranes pink and moist. NECK: Trachea midline. No JVD. CARDIOVASCULAR: Regular rate and rhythm. RESPIRATORY: No accessory muscle use. Clear to auscultation. Breath sounds equal bilaterally. GASTROINTESTINAL: Abdomen soft, non-tender, nondistended. Hepatic and splenic margins not palpable. MUSCULOSKELETAL: Extremities without clubbing, cyanosis, or edema. No obvious deformities. NEUROLOGICAL: Awake and alert. No obvious cranial nerve deficits. Motor grossly within normal limits. Five out of 5 muscle strength in the arms and legs. Normal speech. PSYCHIATRIC: Appropriate mood and affect; insight and judgment normal. Results 04/28/18 11:16 05/01/18 06:45 Comprehensive Metabolic Panel 05/01/18 Range/Units 06:45 Sodium 137 (136-145) meq/L Potassium 4.3 (3.5-5.1) meq/L Chloride 107 (98-107) meq/L Carbon Dioxide 22.3 D (21.0-32.0) meq/L BUN 42 H (7-18) mg/dL Creatinine 2.50 H (0.60-1.30) mg/dL Calcium 8.4 L (8.5-10.1) mg/dL Intake and Output 05/02/18 05/02/18 05/02/18 06:59 14:59 22:59 Intake Total 480 / 480 Output Total 1700 / 1700 Balance -1220 / -1220 Intake: Oral 480 / 480 Output: Urine 1700 / 1700 Other: Date of Last Bowel Movement 05/01/18 Weight 88.6 kg Assessment and Plan - Assessment (1) Acute CHF (congestive heart failure) Code(s): I50.9 - Heart failure, unspecified Status: Acute (2) Elevated troponin Code(s): R74.8 - Abnormal levels of other serum enzymes Status: Acute - Plan 1. Acute heart failure secondary to salt indiscretion. Diuresed Decrease salt intake Appears compensated 2. Hypertensive urgency with a blood pressure of 215/123 on arrival. Blood pressure control Norvasc 10mg daily 3. History of bladder cancer and prostate cancer. 4. Minimally elevated troponin secondary to fluid overload state, renal impairment and hypertensive urgency. No sign of ACS With EF now looking like 20% Planned on cardiac cath today, please see notes below 5. Pericardial effusion with coagulum Mantoux (PPD) test placed Previously [place] the [place], doubt TB as a cause but should be ruled out Negative Pericardiocentesis Drain out Planned on repeat echo, please see notes below 6. Long discussion with the patient, his and daughter Daughter is a PA at a hospital in [place] He is worried about no support system here, and has his daughter and son in [place] Wants to be discharged, and daughter has him set up for direct admission at [facility] They plan to drive straight from here to there for admission Discussed concern with leaving the hospital including risk of [place], CHF, and possible Overall he appears compensated from a heart failure standpoint If at any time he has any symptoms on the ride down, they will stop at the closest hospital I left my card incase any of the physicians need any questions answered about his hospital stay here Discussed with Dr. Ko about the patient being discharged as medical management, and the plan for him to be a direct admit in [place]
== END 2018-05-02 11:00 | disposition home or self-care (01) | DRG 291 ==
LOC: NEPC 05:20 → NEDA 07:53 → HCPC 10:18 → HCIS 04-27 19:48
PROVIDERS: ADMIT Internal Medicine; ATTEND Internal Medicine
DX: N39.0 Urinary tract infection, site not specified; I50.23 Acute on chronic systolic (congestive) heart failure; R06.03 Acute respiratory distress; Z87.891 Personal history of nicotine dependence; I31.3 Pericardial effusion (noninflammatory); Z88.0 Allergy status to penicillin; I13.0 Hypertensive heart and chronic kidney disease with heart failure and stage 1 through stage 4 chronic kidney disease, or unspecified chronic kidney disease; N17.9 Acute kidney failure, unspecified; Z88.1 Allergy status to other antibiotic agents; N18.3 Chronic kidney disease, stage 3 (moderate); R74.8 Abnormal levels of other serum enzymes; Z85.51 Personal history of malignant neoplasm of bladder; I16.0 Hypertensive urgency; Z85.46 Personal history of malignant neoplasm of prostate; B96.20 Unspecified Escherichia coli [E. coli] as the cause of diseases classified elsewhere; Z82.49 Family history of ischemic heart disease and other diseases of the circulatory system
CPT/HCPCS: 33010; 36600; 71010; 71045; 76360; 76937; 77012; 80048; 80053; 81001; 82550; 82805; 82945; 83520; 83615; 83880; 83986; 84155; 84157; 84443; 84484; 85025; 85027; 85610; 85730; 87015; 87070; 87077; 87086; 87102; 87116; 87186; 87205; 87206; 88112; 88305; 89051; 93005; 93306; 93308; 94002; 94656; 99145; 99152; 99153; 99285; C1729; C1769; J1644; J1940; J2060; J2270; J2405